=== PATIENT | male | born 1950 | race Caucasian/White ===

== ENCOUNTER → 2016-12-13 | Outpatient (CLI) | payer OTHER, BC | LOC: MMPC 09:00 | PROVIDERS: ATTEND Family Medicine | DX: I10 Essential (primary) hypertension (principal); M54.5 Low back pain; F17.210 Nicotine dependence, cigarettes, uncomplicated; R33.9 Retention of urine, unspecified; F41.9 Anxiety disorder, unspecified | CPT/HCPCS: 99204 ==

== ENCOUNTER → 2017-01-21 | Outpatient (CLI) | payer OTHER, BC | LOC: MMPC 09:00 | PROVIDERS: ATTEND Family Medicine | DX: N30.90 Cystitis, unspecified without hematuria (principal); R30.0 Dysuria; F41.9 Anxiety disorder, unspecified | CPT/HCPCS: 81002; 99213; G0463 ==

== ENCOUNTER → 2017-01-22 | Outpatient (CLI) | payer OTHER, BC ==
[2017-01-22 11:23] LABS: HEMATOCRIT 39.6 % (42.0-52.0); HEMOGLOBIN 13.9 g/dL (14.0-18.0); MEAN CORPUSCULAR HEMOGLOBIN 35.9 PG (27-31); MEAN CORPUSCULAR HGB CONC 35.1 g/dL (33-37); MEAN CORPUSCULAR VOLUME 102.3 FL (80-90); MEAN PLATELET VOLUME 9.1 FL (7.4-12.2); RED BLOOD COUNT 3.87 10^6/uL (4.70-6.10)
[2017-01-22 11:37] LABS: BLOOD UREA NITROGEN 15 mg/dL (7-22); BUN/CREATININE RATIO 21.42 (6-20); CALCIUM 8.9 mg/dL (8.7-10.7); EST GLOMERULAR FILTRATION > 60 (>60 ml/min/1.73m(2)); SERUM ALBUMIN 3.6 g/dL (3.5-4.8)
== END ==
LOC: MOB LAB 10:27
PROVIDERS: ATTEND Family Medicine
DX: N30.90 Cystitis, unspecified without hematuria (principal); N39.41 Urge incontinence; F41.9 Anxiety disorder, unspecified; F17.210 Nicotine dependence, cigarettes, uncomplicated
CPT/HCPCS: 36415; 80053; 84153; 85027

== ENCOUNTER → 2017-04-07 | Outpatient (CLI) | payer OTHER, BC | LOC: MMPC 09:00 | DX: J20.9 Acute bronchitis, unspecified (principal); J06.9 Acute upper respiratory infection, unspecified; F17.210 Nicotine dependence, cigarettes, uncomplicated | CPT/HCPCS: 94640; 99213; G0463 ==

== ENCOUNTER → 2017-04-11 | Outpatient (CLI) | payer OTHER, BC | LOC: MMPC 09:00 | PROVIDERS: ATTEND Family Medicine | DX: J20.9 Acute bronchitis, unspecified (principal); I10 Essential (primary) hypertension ==

== ENCOUNTER → 2017-04-23 | Outpatient (CLI) | payer OTHER, BC | LOC: MMPC 09:00 | PROVIDERS: ATTEND Family Medicine | DX: J20.9 Acute bronchitis, unspecified (principal); F41.1 Generalized anxiety disorder | CPT/HCPCS: 99212; G0463 ==

== ENCOUNTER → 2017-06-06 | Outpatient (CLI) | payer OTHER, BC | LOC: MMPC 09:00 | PROVIDERS: ATTEND Family Medicine | DX: I10 Essential (primary) hypertension (principal); F41.1 Generalized anxiety disorder; M40.04 Postural kyphosis, thoracic region; F17.210 Nicotine dependence, cigarettes, uncomplicated | CPT/HCPCS: 99214; G0463 ==

== ENCOUNTER → 2017-06-27 | Outpatient (CLI) | payer OTHER, BC ==
--- NOTE | 2017-06-29 13:47 | DI ---
MRI LUMBAR SPINE SCAN WITHOUT IV CONTRAST, 06/27/2017 10:27 AM: Clinical History: Postural kyphosis. Previous Exam: None. Technique: Sagittal and axial T2 weighted; sagittal T1 weighted and T2 STIR; and axial PD. Extensive scan artifacts are present secondary to placement of metallic struts transfixed with pedicl e screws between L1 and S1. The artifacts make assessment of the canal over this distance and possibl e. Anterior fusions have been performed between L1-2 through L5-S1. 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 Assessment o f the canal at this level shows that there is no canal stenosis but the integrity of the apophyseal j oints cannot be determined. The T11 vertebral body is of normal height. The T10-11 and T11-12 and S1- 2 disc spaces are of normal height but show desiccation change. The cord has a normal appearance at T 11 and T12 and the conus medullaris is normal. There is spinal canal stenosis suspected at T12-L1 at the gibbus deformity. Readin. 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 2. There has been anterior and posterior fusions performed between L1-2 and L5-S1. The metallic hard arriaga posteriorly is causing extensive artifacts such that the canal cannot be assessed over these lev els. 3. Further evaluation with a CT scan of the lumbar spine with metal artifact reduction would be the best procedure to assess this area better. Also, if evaluation of the canal is required, then a CT my elogram of the lumbar spine would be recommended.
== END ==
LOC: MRI 10:22
PROVIDERS: ATTEND Family Medicine
DX: M40.04 Postural kyphosis, thoracic region (principal); M48.55XA Collapsed vertebra, not elsewhere classified, thoracolumbar region, initial encounter for fracture
CPT/HCPCS: 72148

== ENCOUNTER 2018-04-18 10:40 | Inpatient (IN) ==
[2018-04-18] MEDS ORDERED: Sodium Chloride 0.9% 1,000 ML PRIMARY IV ONE ×2 (10:52→15:27)
--- NOTE | 2018-04-18 10:56 | EKG ---
[address] [place] [address] Measurements Intervals [place] Rate: 53 P: 46 SD: 143 QRS: 85 QRSD: 106 T: 36 QT: 513 QTc: 496 Interpretive Statements SINUS BRADYCARDIA LOW QRS VOLTAGE IN EXTREMITY LEADS [QRS DEFLECTION < 0.5 mV IN LIMB LEADS] PROLONGED QT INTERVAL Compared to ECG 11/25/2017 10:28:24 Low QRS voltage now present Electronically Signed On 04-20-18 09:52:05 MDT by Magdy Rios MD [email or web address]
[2018-04-18] MEDS ORDERED: HEPARIN 500 UNIT/5 ML SYRINGE FOR CENTRAL LINE IVP ONE (10:58)
--- NOTE | 2018-04-18 11:26 | PDOC ---
General Adult HPI - General Chief Complaint: General Medical Stated Complaint: CONFUSION/LEG SWELLING SINCE YESTERDAY Date Seen by Provider: 04/18/18 Time Seen by Provider: 10:50 Source: POSITIVE: Patient, Other (family) Nurse's Notes Reviewed & Considered: Yes - History of Present Illness Initial Comment: The patient is a 68-year-old male who is brought to the emergency department by family members with concern regarding increased confusion and swelling in his legs. He fractured his left elbow in February of this year and subsequently underwent surgery in [place]. The surgery was complicated by infection and the patient has been receiving IV antibiotics for over a month for this. The family member here with the patient states that when she spoke with him yesterday he seemed out of it. Today he is more confused and was subsequently brought here to the emergency department. On arrival the patient is very lethargic however he does awaken and answer questions briefly. He is unsure of the medications that he is taking And specifically is unsure about taking any recent pain medication. He does report a mild headache. The family member reports that he is supposed to be wearing oxygen at home at least at night however he does not wear any oxygen at home. On arrival to the emergency department here his oxygen saturations were in the 70s and he was placed on O2 per nonrebreather mask. The patient denies any current chest pain. Further history is difficult to obtain from the patient. Have you received a tetanus shot in the past 10 years?: Yes - Patient Home Medications Home Medications: Home Medications Aspirin 81 mg PO DAILY tab 12/13/16 multivitamin with minerals tablet 1 tab PO QDAY tab 10/14/17 naproxen sodium 220 mg tablet 220 mg PO Q12H 10/14/17 oxybutynin chloride 5 mg tablet 15 mg PO QD tab 10/14/17 tizanidine 4 mg tablet 4 mg PO BID PRN #60 tab 12/10/17 meloxicam 7.5 mg tablet 7.5 mg PO BID #60 tab 01/12/18 tamsulosin 0.4 mg capsule 0.4 mg PO QHS #30 cap 01/13/18 clonidine HCl 0.1 mg tablet 0.1 mg PO BID #60 tab 01/20/18 metoprolol tartrate 100 mg tablet 100 mg PO BID #60 tab 01/20/18 losartan 100 mg-hydrochlorothiazide 25 mg tablet 1 tab PO QDAY #90 tab 04/06/18 gabapentin 600 mg tablet 600 mg PO TID #90 tab 02/17/18 lorazepam 1 mg tablet 1 mg PO BID #90 tab MDD 3 03/16/18 omeprazole 40 mg capsule,delayed release 40 mg PO DAILY #30 cap 03/16/18 furosemide 40 mg tablet 40 mg PO BID #4 tab 03/18/18 amlodipine 5 mg tablet 5 mg PO DAILY #30 tab 03/26/18 fluoxetine 40 mg capsule 80 mg PO QDAY #60 cap 03/31/18 trazodone 100 mg tablet 100 mg PO QHS #30 tab 03/31/18 olanzapine 10 mg tablet 10 mg PO QDAY #30 tab 04/08/18 - Patient Allergies Allergies/Adverse Reactions: Allergies 3 Allergy/AdvReac Type Severity Reaction Status Date / Time penicillin V Allergy Unknown NOT Verified 04/18/18 10:50 APPLICABLE Sulfa (Sulfonamide Allergy NOT Verified 04/18/18 10:50 Antibiotics) APPLICABLE Past Medical History - heen HEENT History: Denies History Cardiovascular History: Hypertension Respiratory History: Denies History Gastrointestinal History: Denies History Genitourinary History: Denies History Endocrine History: Denies History Musculoskeletal History: Arthritis Prosthesis or Implant: No Neurological History: Denies History Blood Disorders: Denies History Psychiatric History: Denies History History of Sexually Transmitted Diseases: No Cancer History: Denies History History of MDRO: No History of Other Communicable Diseases: No In the Past 12 Months, Have Used or Abuse Any Substance: None Previous Surgical History: Yes Type / Date of Surgery: TONSILS Anesthesia Reactions: No Malignant Hyperthermia: No Significant Family History: No pertinent family hx Past Medical History Reviewed: Reviewed - No Changes ROS - Limitations ROS Limitations: Clinical Condition Constitution: DENIES: Fever Cardiovascular: DENIES: Chest Pain Respiratory: REPORTS: Other (Patient has no complaints of shortness of breath however his oxygen saturations were in the 70s on room air) Neurological: REPORTS: Confusion, Headache Gastrointestinal: DENIES: Abdominal Pain Musculoskeletal: REPORTS: Lower Extremity Swelling Skin: DENIES: Rash General Adult Exam - General Appearance General Appearance: POSITIVE: Other (The patient is very sleepy and drifts off to sleep when he is not being directly question, he does awaken briefly and answer pointed questions) - HEENT HEENT: POSITIVE: Head Inspection Nml, Eyes Inspection Nml, Ears Inspection Nml, PERRL, EOMI, Dry Mucous Membranes - Neck Neck: POSITIVE: Normal Inspection. NEGATIVE: Lymphadenopathy - Respiratory Respiratory: POSITIVE: No Respiratory Distress, Breath Sounds Normal, Other ( Oxygen saturations were initially in the 70s and he was initially placed on nasal cannula however his oxygen saturations remained in the upper 80s and he was subsequently placed on O2 per nonrebreather which brought his oxygen saturations in the high 90s to 100%. End-tidal CO2 monitor revealed a value of 25) - Cardiovascular Cardiovascular: POSITIVE: Regular Rate & Rhythm (Heart rate is in the 50s which is apparently normal for him), No Murmur - Abdomen Abdomen: Soft: (All Quadrants), Denies Tenderness: (All Quadrants), No Distention: (All Quadrants) - Skin Skin: POSITIVE: Normal Color, No Rash - Extremities Additional Extremities Details: He does have significant swelling in the lower extremities bilaterally, he does have a PICC line in the right arm, dressing over the left elbow General Adult Progress - Results Reviewed by me Xrays/CTs/US Reviewed by me: Yes Discussed with Radiologist: Yes Radiology Findings: Chest x-ray shows new diffuse patchy infiltrates in the lower lobes, PICC line in good position per radiologist. CT scan of the head shows no acute intracranial findings per radiologist. CT of the chest is negative for PE, he does have some perihilar lymphadenopathy and bilateral patchy infiltrates Lab Results Reviewed by Me: Yes CBC and BMP: 04/18/18 11:20 04/18/18 11:20 EKG Interpreted/Reviewed By Me:: Yes EKG Interpretation:: POSITIVE: Other (Initial EKG shows sinus bradycardia, prolonged QT interval with no acute ST segment or T-wave changes) - Patient's Progress MDM / ED Course: The patient already has a PICC line in place in the right arm. Blood cultures were drawn 1 through the PICC line and one percutaneously. Arterial blood gas reveals a pH of 7.43 with PCO2 of 42. His blood sugar was 119 on arrival. He was quite hypoxic initially with oxygen saturations in the 70s on room air. With a nasal cannula he came up only into the high 80s and he was subsequently placed on a nonrebreather with improvement in his oxygen saturations to the high 90s to 100%. The patient remains somnolent and slept for the most part unless he was specifically being questioned. Blood work showed a normal white count. His CRP was 7.6 which is where it has been for the past several weeks. Lactate was normal. Electrolytes are essentially unremarkable except for slightly low potassium at 132. His troponin is negative. BNP was elevated at 1500 however this was 2300 in November last time it was checked here. The patient apparently normally self catheters at home and a Vu catheter was placed. Urinalysis is negative for infection. Chest x-ray showed patchy infiltrates in the bases bilaterally. Head CT shows no acute intracranial findings. His d-dimer was elevated and subsequent CTA of the chest was negative for PE however did show bilateral patchy infiltrates and some mediastinal lymphadenopathy. His tox screen was positive only for benzodiazepines. At this point it appears that the likely cause of his increased confusion is medication related as he is on several medications which could cause confusion. The patient was also significantly hypoxic on arrival. These findings are discussed with his ex- and the patient however he remains quite confused. The patient is also discussed with Dr. Aguilera and he has agreed to admit the patient. Patient Care Time - Estimated PCT Patient Care Time (In Minutes): 55 Vital Signs - Recent Vital Signs Vital Signs: Vital Signs (Last 8 hours) Temp Pulse Pulse Resp BP BP BP 04/18/18 14:34 47 L 14 04/18/18 14:32 47 L 15 86/44 04/18/18 14:30 48 L 15 04/18/18 14:28 48 L 13 04/18/18 14:26 49 L 14 04/18/18 14:24 49 L 17 04/18/18 14:22 54 L 7 L 04/18/18 14:20 53 L 16 107/54 04/18/18 14:18 51 L 9 L 04/18/18 14:16 52 L 14 04/18/18 14:14 50 L 14 04/18/18 14:12 53 L 10 L 04/18/18 14:10 55 L 28 H 04/18/18 14:08 54 L 14 04/18/18 14:06 57 L 13 04/18/18 14:04 53 L 12 04/18/18 14:02 53 L 17 86/49 04/18/18 14:00 55 L 17 04/18/18 13:58 51 L 13 04/18/18 13:56 57 L 12 04/18/18 13:54 54 L 8 L 04/18/18 13:52 55 L 11 L 04/18/18 13:50 60 15 04/18/18 13:48 56 L 17 110/85 04/18/18 13:46 55 L 13 04/18/18 13:44 55 L 13 04/18/18 13:42 55 L 4 L 04/18/18 13:40 55 L 17 04/18/18 13:38 55 L 8 L 04/18/18 13:36 56 L 11 L 04/18/18 13:30 53 L 14 113/63 04/18/18 13:15 54 L 17 96/66 04/18/18 13:00 51 L 21 04/18/18 12:30 51 L 18 04/18/18 12:00 55 L 30 H 04/18/18 11:45 97.4 F 54 L 16 104/80 04/18/18 11:30 54 L 21 04/18/18 11:15 56 L 27 H 04/18/18 11:00 53 L 17 04/18/18 10:55 53 L 04/18/18 10:45 58 L 04/18/18 10:40 98.7 F 57 L 57 L 24 95/58 Pulse Ox 04/18/18 14:34 95 04/18/18 14:32 95 04/18/18 14:30 96 04/18/18 14:28 96 04/18/18 14:26 97 04/18/18 14:24 97 04/18/18 14:22 98 04/18/18 14:20 97 04/18/18 14:18 96 04/18/18 14:16 96 04/18/18 14:14 96 04/18/18 14:12 98 04/18/18 14:10 99 04/18/18 14:08 95 04/18/18 14:06 98 04/18/18 14:04 94 04/18/18 14:02 95 04/18/18 14:00 88 04/18/18 13:58 93 04/18/18 13:56 94 04/18/18 13:54 97 04/18/18 13:52 91 04/18/18 13:50 100 04/18/18 13:48 98 04/18/18 13:46 97 04/18/18 13:44 100 04/18/18 13:42 100 04/18/18 13:40 99 04/18/18 13:38 99 04/18/18 13:36 81 04/18/18 13:30 100 04/18/18 13:15 100 04/18/18 13:00 98 04/18/18 12:30 99 04/18/18 12:00 100 04/18/18 11:45 100 04/18/18 11:30 100 04/18/18 11:15 100 04/18/18 11:00 100 04/18/18 10:55 04/18/18 10:45 89 04/18/18 10:40 77 - VS Reviewed Vital Signs Reviewed: Yes Discharge Clinical Impression: Altered mental status, Hypoxia Discharge Disposition: Admit to Inpatient Condition: Serious Follow Up With: OTIS SIMS [Primary Care Provider] - Date Decision to Admit to Inpatient: 04/18/18 Time Decision to Admit to Inpatient: 14:30
[2018-04-18 11:41] LABS: ABG BASE EXCESS 4 MMOL/L (-2-2); ABG OXYGEN SATURATION 96 % (90-100); ABG PCO2 42 MMHG (34-38); ABG PH 7.43 (7.35-7.45); ABG PO2 81 MMHG (65-75); ALLEN TEST Y; COLLECTION SITE R RADIAL
[2018-04-18 11:49] LABS: BASOPHILS # (AUTO) 0.05 10*3/UL; BASOPHILS % (AUTO) 0.7 % (0-1); EOSINOPHILS % (AUTO) 5.5 % (0-8); Hematocrit [HCT] 30.5 % (42.0-52.0); Hemoglobin [HGB] 10.3 g/dL (14.0-18.0); LYMPHOCYTES # (AUTO) 0.78 10*3/uL; MEAN CORPUSCULAR HEMOGLOBIN 35.5 PG (27-31); MEAN CORPUSCULAR HGB CONC 33.8 g/dL (33-37); MEAN CORPUSCULAR VOLUME 105.2 FL (80-90); MEAN PLATELET VOLUME 8.7 FL (7.4-12.2); MONOCYTES # (AUTO) 0.41 10*3/UL (0.3-0.8); MONOCYTES % (AUTO) 5.6 % (5-15); NEUTROPHILS # (AUTO) 5.68 10*3/UL; NEUTROPHILS % (AUTO) 77.5 % (50-80)
[2018-04-18 11:50] LABS: PLATELET MORPHOLOGY COMMENT NORMAL MORPHOLOGY (NORM); RBC MORPHOLOGY COMMENT NORMAL MORPHOLOGY (NORM); WBC MORPHOLOGY COMMENT NORMAL MORPHOLOGY (NORM)
[2018-04-18 12:02] LABS: BLOOD UREA NITROGEN 18 mg/dL (7-22); SERUM ALBUMIN 3.2 g/dL (3.5-4.8)
[2018-04-18 12:03] LABS: SALICYLATE < 1.0 mg/dl (0-20)
[2018-04-18 12:03] LABS: BILIRUBIN,URINE SMALL (NEG); CLARITY,URINE CLEAR (CLEAR); COLOR,URINE YELLOW (Y); GLUCOSE, URINE (UA) NEGATIVE (NEG); OCCULT BLOOD,URINE NEGATIVE (NEG); PH,URINE 8.5 (5.0-8.5); PROTEIN,URINE NEGATIVE (NEG); UROBILINOGEN,URINE >8.0 EU/dL (0.2)
[2018-04-18 12:04] LABS: URINE SAMPLE TYPE CLEAN CATCH URINE; URINE SPECIFIC GRAVITY - MAN 1.015
[2018-04-18 12:11] LABS: AMPHETAMINE SCREEN NEGATIVE (NEG); CANNABINOID SCREEN,URINE NEGATIVE (NEG); COCAINE SCREEN NEGATIVE (NEG); METHADONE URINE SCREEN NEGATIVE (NEG); METHAMPHETAMINES SCREEN,URINE NEGATIVE (NEG); OPIATE SCREEN,URINE NEGATIVE (NEG)
--- NOTE | 2018-04-18 12:41 | DI ---
Exam: FILM CXR Single frontal view chest INDICATION: Hypoxia COMPARISON: Chest x-ray 04/06/18 FINDINGS: Patient is rotated to the left. Right PICC line tip in the superior vena cava in satisfactory position. Patchy airspace infiltrate in the lung bases bilaterally more evident near the right costophrenic angle. There is also patchy alveolar opacity in the right lateral midlung field. No effusion or pneumothorax. Low lung volumes are noted. Heart size within normal limits. Accounting for rotation mediastinal contours remain stable within normal limits. No venous congestion accounting for low lung volume status. The cardiomediastinal silhouette is within normal limits. Lungs are clear. Bony elements are within normal limits for age. No acute osseous abnormality. IMPRESSION: 1. Right PICC line tip in the superior vena cava satisfactory in position. 2. Interval development of patchy airspace opacity in the bilateral lung bases and right lateral midlung field. These cannot present regions of subsegmental atelectasis however pneumonia is also in the consideration. 3. No effusion or pneumothorax.
--- NOTE | 2018-04-18 13:54 | DI ---
Exam: CT HEAD Without Contrast INDICATION: Confusion TECHNIQUE: Multiple, contiguous 5 mm axial cuts of the brain are obtained from the posterior fossa to the cranial vault. . No IV contrast is administered. COMPARISON: No prior CT head available FINDINGS: No acute intracranial hemorrhage or midline shift or mass effect. No acute cortical infarct by CT exam. Caliber of the ventricles, cisterns and sulci are within normal limits for age. Vanegas-white differentiation is maintained. No skull fractures. Previous bilateral maxillary sinus antrectomy surgical changes with partial ethmoidectomy and turbinectomy. Moderate mucosal thickening bilateral maxillary sinus and mild degree of few of the ethmoid air cells. Remaining paranasal sinuses are clear. Visualized mastoid air cells are clear. IMPRESSION: 1. No acute intracranial hemorrhage or acute intracranial process. No acute cortical infarct identified by CT. 2. Previous paranasal sinus surgical changes. There is moderate chronic sinus mucosal thickening of the bilateral maxillary sinus and mild degree of diffuse ethmoid air cells.
--- NOTE | 2018-04-18 14:25 | DI ---
Exam: CTA CHEST With Contrast INDICATION: Elevated d-dimer, hypoxia TECHNIQUE: Multiple, contiguous 3 mm axial cuts of the chest are obtained following the administration of IV contrast. High resolution axial images as well as sagittal and coronal reformatted images are available. COMPARISON: Chest radiograph exam 04/18/18, 04/06/18 FINDINGS: No filling defects within the pulmonary arteries identified to indicate a pulmonary embolism. There is extensive emphysematous changes of the lungs. Airspace consolidation in the bilateral lower lobes and periphery of the right middle lobe are noted and also at the periphery of the posterior segment of the right upper lobe. There is also patchy small regions of airspace consolidation in the left upper lobe. There is a component of bilateral basilar atelectasis. There is trace bilateral pleural effusions. No pneumothorax. There is bilateral hilar enlarged nodes largest on the right measuring 2. 2 cm, largest on the left measuring 2.8 cm. There are enlarged mediastinal lymph nodes largest a subcarinal 3.2 cm lymph node. No enlarged axillary lymph nodes. There are a few fatty hilum lateral lymph nodes noted short axis diameter within normal limits. Thoracic aorta normal caliber without dissection. Minimal vascular calcification. Heart size upper normal. There is coronary artery calcification. No pericardial effusion. Posterior pedicle screw and yosi fusion at L1 and L2 level. Portion of the inferior aspect of T12 vertebral body is absent in addition to portion of L1 vertebral body. Unclear if these are chronic surgical changes are related to old trauma and chronic changes. Kyphotic angulation at T12/L1. Osteoarthritic changes left glenohumeral joint with some calcific densities in the left glenohumeral joint likely loose bodies. There is also osteoarthritic changes of the acromioclavicular joints. Partially imaged approximate 3 cm exophytic lesion of the left kidney upper pole density not definitive for simple cyst. IMPRESSION: 1. No filling defects within the pulmonary arteries to indicate a pulmonary embolism. 2. Patchy airspace consolidation changes in the right lower lobe and periphery of the right middle lobe and right upper lobe. Small region of patchy airspace consolidation in the left upper lobe. These could represent regions of pneumonia. There is a component of bilateral basilar atelectatic change. Correlate with clinical findings. 3. Trace bilateral pleural effusions. No pneumothorax. 4. Emphysematous changes of the lungs. 5. Mediastinal and hilar adenopathy. 6. Posterior pedicle screw and yosi fusion at L1 and L2 level. Portion of the inferior aspect of T12 vertebral body is absent in addition to portion of L1 vertebral body. Unclear if these are chronic surgical changes are related to old trauma and chronic changes. Kyphotic angulation at T12/L1. Osteoarthritic changes left glenohumeral joint with some calcific densities in the left glenohumeral joint likely loose bodies. Comparison to prior exams would be helpful along with clinical correlation with patient's prior history. 7. 3 cm exophytic lesion of the left kidney upper pole density not definitive for simple cyst. This can be evaluated by nonemergent follow- up ultrasound.
[2018-04-18] MEDS ORDERED: Magnesium Sulfate 2gm (Premix) 2 GM/50 ML BAG IV ONE (15:23)
[2018-04-18] MEDS ORDERED: ONDANSETRON 4 MG/2 ML VIAL IVP PRN (15:23)
[2018-04-18] MEDS ORDERED: LIDOCAINE W/ SODIUM BICARB 0.5 ML SYR SUBD PRN (15:23)
[2018-04-18] MEDS ORDERED: DAPTOMYCIN IV ONE (15:23)
[2018-04-18] MEDS ORDERED: DOCUSATE 100 MG CAPSULE PO PRN (15:23)
[2018-04-18] MEDS ORDERED: SODIUM CHLORIDE 0.9% IV ONE (15:23)
[2018-04-18] MEDS ORDERED: Sodium Chloride 0.9% 1,000 ML PRIMARY IV SCH (15:23)
[2018-04-18] MEDS ORDERED: CALCIUM CARBONATE 500 MG (TUMS) CHEWABLE TABLET PO PRN (15:23)
[2018-04-18] MEDS ORDERED: ACETAMINOPHEN 325 MG TABLET PO PRN (15:23)
[2018-04-18] MEDS ORDERED: NICOTINE 21 MG /DAY PATCH TRANSDERM ONE (15:28)
[2018-04-18] MEDS ORDERED: LORazepam Inj(ETOH withdrawal) 2 MG/ML VIAL IVP PRN (15:28)
--- NOTE | 2018-04-18 15:43 | PDOC ---
HPI - History of Present Illness Date of Service: 04/18/18 Time of Service: 15:37 Chief Complaint: Altered mental status History of Present Illness: This is a 68-year-old male with history of tobacco abuse, alcohol abuse, and recent elbow fracture with subsequent postoperative infection earlier this year who is still on IV antibiotics with a PICC line in place who presents with altered mental status. His ex- apparently has been assisting him to some degree with his care. The patient was noted to be "out of it" yesterday and he was brought in for evaluation today. He became quite hypoxic and workup was done to look for possible pulmonary emboli. That study was negative. EKG showed a prolonged QT time. The patient's ex- reported to the nurses that she felt the patient was likely drinking, although the patient cannot really provide those details. He is somewhat lethargic, sluggish, and slow to answer questions. He does not always answer them appropriately. He seems confused. He is bradycardic and his blood pressure is been slowly dropping as well. His history is completely unreliable and unobtainable due to the above issues. His medication list shows several medications that can act centrally and can also prolong the QT time. He appears to have hypertension looking at his list as well. History of screen was positive for benzodiazepines which he is on chronically. Past Medical History Medical History: 1. Hypertension. 2. Anxiety disorder. 3. Alcohol abuse. 4. Tobacco abuse. 5. Obstructive sleep apnea. 6. Elbow infection, postoperative. 7. Depression. 8. GERD Surgical History: 1. Recent elbow surgery on left elbow. 2. Sinus surgery. 3. Back surgery. 4. Squamous carcinoma the skin removal. 5. Total knee replacement. 6. PICC line right upper extremity Pertinent Family History: I cannot obtain this information is the patient is altered Past Social History: Smokes daily, pack and a half. He states that he is not on alcohol but his ex- doubts that this is true. His alcohol and his testing in the emergency room was negative. Tobacco Use: Current Every Day Smoker In the Past 12 Months, Have Used or Abuse Any of the Following Substance: None Alcohol Use: Heavy (Reportedly drinks heavily) Medication / Allergies Home Medications: Home Medications 3 Medication Instructions Recorded Confirmed Type Aspirin 81 mg PO DAILY tab 12/13/16 04/18/18 History multivitamin with minerals tablet 1 tab PO QDAY tab 10/14/17 04/18/18 History naproxen sodium 220 mg tablet 220 mg PO Q12H 10/14/17 04/18/18 History oxybutynin chloride 5 mg tablet 15 mg PO QD tab 10/14/17 04/18/18 History tizanidine 4 mg tablet 4 mg PO BID PRN #60 tab 12/10/17 04/18/18 Rx meloxicam 7.5 mg tablet 7.5 mg PO BID #60 tab 01/12/18 04/18/18 Rx tamsulosin 0.4 mg capsule 0.4 mg PO QHS #30 cap 01/13/18 04/18/18 Rx clonidine HCl 0.1 mg tablet 0.1 mg PO BID #60 tab 01/20/18 04/18/18 Rx metoprolol tartrate 100 mg tablet 100 mg PO BID #60 tab 01/20/18 04/18/18 Rx losartan 100 1 tab PO QDAY #90 tab 02/06/18 04/18/18 Rx mg-hydrochlorothiazide 25 mg tablet gabapentin 600 mg tablet 600 mg PO TID #90 tab 02/17/18 04/18/18 Rx lorazepam 1 mg tablet 1 mg PO BID #90 tab MDD 3 03/16/18 04/18/18 Rx omeprazole 40 mg capsule,delayed 40 mg PO DAILY #30 cap 03/16/18 04/18/18 Rx release furosemide 40 mg tablet 40 mg PO BID #4 tab 03/18/18 04/18/18 Rx amlodipine 5 mg tablet 5 mg PO DAILY #30 tab 03/26/18 04/18/18 Rx fluoxetine 40 mg capsule 80 mg PO QDAY #60 cap 03/31/18 04/18/18 Rx trazodone 100 mg tablet 100 mg PO QHS #30 tab 03/31/18 04/18/18 Rx olanzapine 10 mg tablet 10 mg PO QDAY #30 tab 04/08/18 04/18/18 Rx Allergies/Adverse Reactions: Allergies 3 Allergy/AdvReac Type Severity Reaction Status Date / Time penicillin V Allergy Unknown NOT Verified 04/18/18 15:35 APPLICABLE Sulfa (Sulfonamide Allergy NOT Verified 04/18/18 15:35 Antibiotics) APPLICABLE Review of Systems - Review of Systems ROS Unobtainable: Due to Mental Status (I cannot obtain a review systems due to the patient's altered mental status.) Exam - Vitals Vital Signs: Vital Signs Temperature 98.5 F Temperature Source Temporal Artery Scan Pulse Rate [Telemetry] 53 Pulse Rate 55 Respiratory Rate 16 Blood Pressure [Left Radial 113/63 Artery] Blood Pressure [Right Radial 95/58 Artery] Blood Pressure 117/66 Pulse Ox 97 Oxygen Delivery Method Non-Rebreather Mask Height 5 ft 6 in Weight 167 lb 11.2 oz - General General Appearance: No Acute Distress, Disheveled, Thin - Head Head Exam: Normal Inspection, Normocephalic, Atraumatic - Eye Eye Exam: POSITIVE: No Scleral Icterus Eye: Abnormal Pupil: Bilateral Eye (mydriasis, sluggish pupils) - ENT ENT Exam: POSITIVE: Mucous Membranes Dry - Neck Neck Exam: No Tenderness, No Lymphadenopathy, No Thyromegaly, JVP is not Raised - Respiratory Respiratory Exam: POSITIVE: Clear to Auscultation - Bilaterally, Breathing Non Labored, Normal to Percussion and Palpation - Cardiovascular Cardiovascular Exam: POSITIVE: No Murmur, No Clicks, No Gallops, No Rubs, Bradycardia, No JVD - GI/Abdominal GI/Abdominal Exam: POSITIVE: Normal Bowel Sounds, Non Tender, Non Distended, Soft - Rectal Rectal Exam: POSITIVE: Deferred - External Exam: POSITIVE: Deferred Exam: POSITIVE: Deferred - Extremities Extremities Exam: POSITIVE: Normal Capillary Refill, Pedal Edema, +2 Edema - Back Back Exam: POSITIVE: No CVA Tenderness Additional Back Exam Details: Has noted kyphotic deformity at and a thoracic spine and lumbar spine, beginning of lumbar spine. - Neurological Neurological Exam: POSITIVE: Alert, No Facial Droop, Speech Intact / Clear ( Speech is somewhat sluggish, but is not slurred.), Moves All Extremities Equally , Altered (Oriented to person, but not to time or situation) - Integumentary Integumentary Exam: POSITIVE: Normal Color, Warm, Dry, Intact - Central Line Examination Central Line Present on Admission: Yes Central Line Type: PICC Line (PICC line and right upper extremity is present on exam, PICC line is clean, dry, intact with no erythema) Results - Labs CBC and BMP: 04/18/18 11:20 04/18/18 11:20 Additional Lab Results: Laboratory Results 06/16/18 06/16/18 06/16/18 Range/Units 10:52 11:16 11:20 WBC 7.33 (4.8-10.8) 10^3/uL RBC 2.90 L (4.70-6.10) 10^6/uL Hgb 10.3 L (14.0-18.0) g/dL Hct 30.5 L (42.0-52.0) % MCV 105.2 H (80-90) FL MCH 35.5 H (27-31) PG MCHC 33.8 (33-37) g/dL RDW Std Deviation 60.7 H (39-50) fL RDW Coeff of [place] 16.7 H (11.5-14.5) % Plt Count 260 (140-350) 10*3/uL MPV 8.7 (7.4-12.2) FL Immature Gran % (Auto) 0.1 (0-5) % Neut % (Auto) 77.5 (50-80) % Lymph % (Auto) 10.6 (10-50) % [place] % (Auto) 5.6 (5-15) % Eos % (Auto) 5.5 (0-8) % Baso % (Auto) 0.7 (0-1) % Immature Gran # (Auto) 0.01 10*3/UL Neut # (Auto) 5.68 10*3/UL Lymph # (Auto) 0.78 10*3/uL [place] # (Auto) 0.41 (0.3-0.8) 10*3/UL Eos # (Auto) 0.40 10*3/UL Baso # (Auto) 0.05 10*3/UL WBC Morphology Comment Normal morphology (NORM) Plt Morphology Comment Normal morphology (NORM) RBC Morph Comment Normal morphology (NORM) PT (9.7-11.4) secs INR (0.00-5.90) N/A D-Dimer (0.00-0.59) mg/L ABG pH 7.43 (7.35-7.45) ABG pCO2 42 H (34-38) MMHG ABG pO2 81 H (65-75) MMHG ABG HCO3 28 H (22-26) ABG Total CO2 29 H (23-27) MMOL/L ABG O2 Saturation 96 (90-100) % ABG Base Excess 4 H (-2-2) MMOL/L Rafal Test Y FiO2 10lpm pnrb Sodium (135-145) meq/L Potassium (3.8-5.2) meq/L Chloride (98-112) meq/L Carbon Dioxide (23-33) meq/L Anion Gap (5-20) BUN (7-22) mg/dL Creatinine (0.70-1.50) mg/dL Estimated GFR (>60 ml/min/1.73m(2)) BUN/Creatinine Ratio (6-20) Glucose (78-110) mg/dL Calculated Osmolality (267-292) mOsm/kg Lactic Acid (0.70-2.10) MMOL/L Calcium (8.7-10.7) mg/dL Magnesium (1.6-2.4) mg/dL Total Bilirubin (0.3-1.2) mg/dL AST (21-57) IU/L ALT (21-72) IU/L Alkaline Phosphatase (38-126) IU/L C-Reactive Protein (0.0-0.9) mg/dL NT-Pro-B Natriuret Pep (0-125) PG/ML Total Protein (6.1-8.0) g/dL Albumin (3.5-4.8) g/dL Globulin (2.50-4.10) g/dL Albumin/Globulin Ratio (1.3-2.0) mg/g Ur Collection Type Clean catch urine Urine Color Yellow (Y) Urine Clarity Clear (CLEAR) Urine pH 8.5 (5.0-8.5) Ur Specific [place] 1.015 (1.005-1.030) U Specif Grav (Refrac) 1.015 Urine Protein Negative (NEG) mg/dl Urine Glucose (UA) Negative (NEG) mg/dL Urine Ketones Negative (NEG) Urine Occult Blood Negative (NEG) Urine Nitrate Negative (NEG) Urine Bilirubin Small (NEG) Urine Urobilinogen >8.0 (0.2) EU/dL Ur Leukocyte Esterase Negative (NEG) Ur Culture Indicated? Culture not set Salicylates (0-20) mg/dl Urine Opiates Screen Negative (NEG) Ur Buprenorphine Negative (NEG) Ur Oxycodone Screen Negative (NEG) Urine Methadone Screen Negative (NEG) Ur Propoxyphene Screen Negative (NEG) Acetaminophen (0-30) ug/mL Barbiturate Screen Negative (NEG) U Tricyclic Antidepress Negative (NEG) Phencyclidine Screen Negative (NEG) Amphetamines Screen Negative (NEG) U Methamphetamines Scrn Negative (NEG) Benzodiazepines Screen Positive H (NEG) Cocaine Screen Negative (NEG) U Marijuana (THC) Screen Negative (NEG) Serum Alcohol (0-10) mg/dL 04/18/18 04/18/18 04/18/18 Range/Units 11:20 11:20 11:20 WBC (4.8-10.8) 10^3/uL RBC (4.70-6.10) 10^6/uL Hgb (14.0-18.0) g/dL Hct (42.0-52.0) % MCV (80-90) FL MCH (27-31) PG MCHC (33-37) g/dL RDW Std Deviation (39-50) fL RDW Coeff of [place] (11.5-14.5) % Plt Count (140-350) 10*3/uL MPV (7.4-12.2) FL Immature Gran % (Auto) (0-5) % Neut % (Auto) (50-80) % Lymph % (Auto) (10-50) % [place] % (Auto) (5-15) % Eos % (Auto) (0-8) % Baso % (Auto) (0-1) % Immature Gran # (Auto) 10*3/UL Neut # (Auto) 10*3/UL Lymph # (Auto) 10*3/uL [place] # (Auto) (0.3-0.8) 10*3/UL Eos # (Auto) 10*3/UL Baso # (Auto) 10*3/UL WBC Morphology Comment (NORM) Plt Morphology Comment (NORM) RBC Morph Comment (NORM) PT 11.3 (9.7-11.4) secs INR 1.07 (0.00-5.90) N/A D-Dimer 1.22 H (0.00-0.59) mg/L ABG pH (7.35-7.45) ABG pCO2 (34-38) MMHG ABG pO2 (65-75) MMHG ABG HCO3 (22-26) ABG Total CO2 (23-27) MMOL/L ABG O2 Saturation (90-100) % ABG Base Excess (-2-2) MMOL/L Rafal Test FiO2 Sodium 133 L (135-145) meq/L Potassium 3.8 (3.8-5.2) meq/L Chloride 95 L (98-112) meq/L Carbon Dioxide 30 (23-33) meq/L Anion Gap 8 (5-20) BUN 18 (7-22) mg/dL Creatinine 0.9 (0.70-1.50) mg/dL Estimated GFR > 60 (>60 ml/min/1.73m(2)) BUN/Creatinine Ratio 20.00 (6-20) Glucose 101 (78-110) mg/dL Calculated Osmolality 277.0 (267-292) mOsm/kg Lactic Acid 2.0 (0.70-2.10) MMOL/L Calcium 8.2 L (8.7-10.7) mg/dL Magnesium 1.7 (1.6-2.4) mg/dL Total Bilirubin 2.3 H (0.3-1.2) mg/dL AST 16 L (21-57) IU/L ALT 32 (21-72) IU/L Alkaline Phosphatase 55 (38-126) IU/L C-Reactive Protein 7.7 H (0.0-0.9) mg/dL NT-Pro-B Natriuret Pep 1550 H (0-125) PG/ML Total Protein 6.2 (6.1-8.0) g/dL Albumin 3.2 L (3.5-4.8) g/dL Globulin 3.0 (2.50-4.10) g/dL Albumin/Globulin Ratio 1.00 L (1.3-2.0) mg/g Ur Collection Type Urine Color (Y) Urine Clarity (CLEAR) Urine pH (5.0-8.5) Ur Specific [place] (1.005-1.030) U Specif Grav (Refrac) Urine Protein (NEG) mg/dl Urine Glucose (UA) (NEG) mg/dL Urine Ketones (NEG) Urine Occult Blood (NEG) Urine Nitrate (NEG) Urine Bilirubin (NEG) Urine Urobilinogen (0.2) EU/dL Ur Leukocyte Esterase (NEG) Ur Culture Indicated? Salicylates < 1.0 (0-20) mg/dl Urine Opiates Screen (NEG) Ur Buprenorphine (NEG) Ur Oxycodone Screen (NEG) Urine Methadone Screen (NEG) Ur Propoxyphene Screen (NEG) Acetaminophen < 10.0 (0-30) ug/mL Barbiturate Screen (NEG) U Tricyclic Antidepress (NEG) Phencyclidine Screen (NEG) Amphetamines Screen (NEG) U Methamphetamines Scrn (NEG) Benzodiazepines Screen (NEG) Cocaine Screen (NEG) U Marijuana (THC) Screen (NEG) Serum Alcohol < 10 (0-10) mg/dL - EKG Data -: EKG Interpreted by Me Rate: Bradycardia EKG Shows Normal: Sinus Rhythm - EKG Data EKG Interpretation: Other (Prolonged QT interval) - Imaging Status: Image Reviewed by Me (Chest x-ray shows increased right lower lobe densities on exam that on CT scan read as possible atelectasis versus airspace disease. He has several nodules on CT scan as well, per the radiology report. Head CT scan looks negative on my view for acute bleeding. CT scan of chest negative for pulmonary emboli.) Assessment and Plan - Patient Problems (1) Altered mental status Current Visit: Yes Status: Acute Code(s): R41.82 - Altered mental status, unspecified Qualifiers: Altered mental status type: disorientation Qualified Code(s): R41.0 - Disorientation, unspecified (2) Prolonged Q-T interval on ECG Current Visit: Yes Status: Acute Code(s): R94.31 - Abnormal electrocardiogram [ECG] [EKG] (3) Hypertension Current Visit: Yes Status: Acute Code(s): I10 - Essential (primary) hypertension Qualifiers: Hypertension type: essential hypertension Qualified Code(s): I10 - Essential (primary) hypertension (4) Tobacco abuse Current Visit: Yes Status: Chronic Onset Date: 12/13/16 Code(s): Z72.0 - Tobacco use (5) Chronic bilateral low back pain without sciatica Current Visit: Yes Status: Chronic Onset Date: 12/13/16 Code(s): M54.5 - Low back pain; G89.29 - Other chronic pain (6) History of alcohol abuse Current Visit: Yes Status: Acute Code(s): Z87.898 - Personal history of other specified conditions (7) Postoperative wound infection Current Visit: Yes Status: Acute Code(s): T81.4XXA - Infection following a procedure, initial encounter Qualifiers: Encounter type: subsequent encounter Qualified Code(s): T81.4XXD - Infection following a procedure, subsequent encounter - Assessment / Plan Additional Assessment/Plan Details: Admit the patient. The patient appears to have both drug overdose on prescription medications as well as probable alcohol withdrawal with mydriasis, sluggishness, somnolence, hypotension, bradycardia. He has a prolonged QT and is on several medications that could cause a prolonged QT including several psychiatric medications. I tried to ask him if he had a history of bipolar disorder schizophrenia, but the history is so suspect at this point and I cannot really determine why he is on some of the medications he is. He is on several centrally acting agents including clonidine, Zyprexa, fluoxetine, trazodone, oxybutynin, fluoxetine, and I'm not sure if he is on any pain medications for his elbow as I can't see them on his reconciled medications at this point. He may be also drinking alcohol according to his ex- which is adding to the problems. We will run D5 normal saline with 3 A of bicarbonate and check EKGs through the hospital stay. Check labs in a.m. Telemetry monitoring. CIWA protocol and when necessary benzodiazepines based on this for withdrawal symptoms. Continue IV infusions for left elbow infection Given CT scan findings of nodules, think he'll need repeat CT scan findings. At this point and not sure what to make another airspace densities. The patient does not clinically have pneumonia. It's probably atelectasis. Given the findings on the kidneys, get a retroperitoneal ultrasound to look at the kidneys in more details to determine whether or not there is a mass there that we need to worry about. Complex, patient's prognosis is guarded given his presentation, full code.
[2018-04-18] MEDS ORDERED: LIDOCAINE HCL 2 % 10 ML JELLY URO-JECT TOPICAL PRN (16:00)
[2018-04-18] MEDS: DAPTOMYCIN IV SCH (16:11)
[2018-04-18] MEDS: SODIUM CHLORIDE 0.9% IV SCH (16:11)
[2018-04-18] MEDS: SODIUM BICARB IV SCH ×2 (17:16)
[2018-04-18] MEDS: D5 NS IV SCH ×2 (17:16)
--- NOTE | 2018-04-18 19:39 | DI ---
EXAM: US Retroperitoneal Complete, Renal CLINICAL HISTORY: Left kidney mass. TECHNIQUE: Real-time ultrasound of the kidneys and bladder with image documentation. COMPARISON: Correlation made with CT of the chest dated 04/18/2018. FINDINGS: Right kidney: Right kidney measures 10.7 x 6.1 x 6.6 cm. Right lower pole renal cyst is present measuring 2.3 x 2.2 x 2.6 cm. Trace pelviectasis is present without hydronephrosis. No calculi visualized. Left kidney: Left kidney measures 11.6 x 6.0 x 6.1 cm. No hydronephrosis. No mass identified. No calculi visualized. Bladder: Vu catheter is present in the bladder. Bladder measures 8. 2 x 5.7 x 7.9 cm with Vu clamped and 7.7 x 7.0 x 6.7 cm with Vu unclamped. Bladder wall is thickened measuring up to 9 mm anteriorly. Bilateral ureteral jets visualized in the bladder. Possible small bladder diverticulum on the left. IMPRESSION: 1. Right lower pole renal cyst measuring 2.6 cm. No left renal mass identified on provided images. 2. Trace right pelviectasis without hydronephrosis. 3. Thickened bladder wall measuring up to 9 mm anteriorly. Bladder wall thickening may be related to cystitis although other processes such as chronic bladder outlet obstruction or neoplasm cannot be excluded. Recommend correlation with urinalysis and further workup as needed.
[2018-04-18] MEDS: Metoprolol TARTRATE Tab 50 MG TAB PO SCH (20:37)
[2018-04-18] MEDS ORDERED: TAMSULOSIN 0.4 MG CAPSULE PO SCH (21:00)
--- NOTE | 2018-04-18 22:00 | EKG ---
[address] [address] Measurements Intervals [place] Rate: 49 P: 46 AR: 143 QRS: 27 QRSD: 113 T: 31 QT: 513 QTc: 483 Interpretive Statements SINUS BRADYCARDIA LOW QRS VOLTAGE IN EXTREMITY LEADS [QRS DEFLECTION < 0.5 mV IN LIMB LEADS] MODERATE INTRAVENTRICULAR CONDUCTION DELAY [110+ ms QRS DURATION] PROLONGED QT INTERVAL Compared to ECG 04/18/2018 10:55:01 Intraventricular conduction delay now present Electronically Signed On 04-20-18 09:54:11 MDT by Magdy Rios MD [email or web address]
[2018-04-19] MEDS: SODIUM BICARB IV SCH ×4 (02:34→12:34)
[2018-04-19] MEDS: D5 NS IV SCH ×4 (02:34→12:34)
[2018-04-19 05:29] LABS: BASOPHILS # (AUTO) 0.04 10*3/UL; BASOPHILS % (AUTO) 0.6 % (0-1); EOSINOPHILS # (AUTO) 0.71 10*3/UL; EOSINOPHILS % (AUTO) 10.6 % (0-8); Hematocrit [HCT] 30.9 % (42.0-52.0); Hemoglobin [HGB] 10.3 g/dL (14.0-18.0); LYMPHOCYTES # (AUTO) 0.55 10*3/uL; MEAN CORPUSCULAR HEMOGLOBIN 35.6 PG (27-31); MEAN CORPUSCULAR HGB CONC 33.3 g/dL (33-37); MEAN CORPUSCULAR VOLUME 106.9 FL (80-90); MONOCYTES # (AUTO) 0.38 10*3/UL (0.3-0.8); MONOCYTES % (AUTO) 5.7 % (5-15); NEUTROPHILS % (AUTO) 74.8 % (50-80); RED BLOOD COUNT 2.89 10^6/uL (4.70-6.10)
[2018-04-19 05:34] LABS: BLOOD UREA NITROGEN 13 mg/dL (7-22); BUN/CREATININE RATIO 21.66 (6-20); SERUM ALBUMIN 2.4 g/dL (3.5-4.8)
[2018-04-19 05:57] LABS: PLATELET MORPHOLOGY COMMENT NORMAL MORPHOLOGY (NORM); WBC MORPHOLOGY COMMENT NORMAL MORPHOLOGY (NORM)
[2018-04-19 05:58] LABS: RBC MORPHOLOGY COMMENT SEE COMMENTS (NORM)
[2018-04-19] MEDS ORDERED: OMEPRAZOLE 40 MG CAPSULE PO SCH (07:00)
[2018-04-19] MEDS: Metoprolol TARTRATE Tab 50 MG TAB PO SCH (08:31)
[2018-04-19] MEDS: NICOTINE 21 MG /DAY PATCH TRANSDERM SCH ×2 (08:31→08:32)
[2018-04-19] MEDS ORDERED: AmLODIPine Tab 5 MG TABLET PO SCH (09:00)
[2018-04-19] MEDS ORDERED: ENOXAPARIN SODIUM 40 MG/0.4 ML SYRINGE SUBCUT SCH (09:00)
[2018-04-19] MEDS ORDERED: MULTIVITAMIN WITH MINERALS PO SCH (09:00)
[2018-04-19] MEDS ORDERED: ASPIRIN 81 MG (BABY) CHEWABLE TABLET PO SCH (09:00)
--- NOTE | 2018-04-19 09:27 | EKG ---
[address] [address] Measurements Intervals [place] Rate: 53 P: 46 [place]: 149 QRS: 41 QRSD: 106 T: 29 QT: 469 QTc: 453 Interpretive Statements SINUS BRADYCARDIA LOW QRS VOLTAGE IN EXTREMITY LEADS [QRS DEFLECTION < 0.5 mV IN LIMB LEADS] Compared to ECG 04/18/2018 22:01:45 Intraventricular conduction delay no longer present Prolonged QT interval no longer present Electronically Signed On 04-20-18 09:55:02 MDT by Magdy Rios MD [email or web address]
[2018-04-19] MEDS ORDERED: SODIUM BICARBONATE 8.4% - 50 ML VIAL ONE (12:22)
[2018-04-19 12:32] VITALS: BP 107/53; RESP 20; TEMP 98.8; O2SAT 94
[2018-04-19] MEDS: SODIUM CHLORIDE 0.9% IV SCH (15:25)
[2018-04-19] MEDS: DAPTOMYCIN IV SCH (15:25)
[2018-04-19] MEDS ORDERED: HEPARIN 500 UNIT/5 ML SYRINGE FOR CENTRAL LINE IVP ONE (16:00)
[2018-04-19] MEDS ORDERED: HEPARIN 500 UNIT/5 ML SYRINGE FOR CENTRAL LINE IVP PRN (16:03)
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
[2018-04-19] MEDS ORDERED: Metoprolol TARTRATE Tab 50 MG TAB PO SCH (21:00)
== END 2018-04-19 17:10 | disposition home or self-care (01) | DRG 948 ==
LOC: ER 10:40 → MED/SURG 14:57
PROVIDERS: ADMIT Family Medicine; ATTEND Family Medicine

== ENCOUNTER 2018-04-28 11:12 | Inpatient (IN) ==
[2018-04-28] MEDS ORDERED: Sodium Chloride 0.9% 1,000 ML PRIMARY IV ONE (12:16)
[2018-04-28] MEDS ORDERED: IPRATROPIUM/ALBUTEROL SULFATE 3 ML NEB NEB ONE (12:39)
--- NOTE | 2018-04-28 13:05 | EKG ---
[address] [place] [address] Measurements Intervals [place] Rate: 71 P: 55 WA: 135 QRS: 128 QRSD: 103 T: 63 QT: 474 QTc: 496 Interpretive Statements SINUS RHYTHM INDETERMINATE AXIS LOW QRS VOLTAGE IN EXTREMITY LEADS INCOMPLETE RIGHT BUNDLE BRANCH BLOCK PROLONGED QT INTERVAL Compared to ECG 04/24/2018 18:25:06 Indeterminate axis now present Incomplete right bundle-branch block now present Left-axis deviation no longer present Poor R-wave progression no longer present Electronically Signed On 04-28-18 17:24:21 MDT by Mohit Bowman [email or web address]
[2018-04-28 13:10] LABS: BASOPHILS # (AUTO) 0.02 10*3/UL; BASOPHILS % (AUTO) 0.2 % (0-1); EOSINOPHILS # (AUTO) 0.35 10*3/UL; EOSINOPHILS % (AUTO) 3.9 % (0-8); Hematocrit [HCT] 30.4 % (42.0-52.0); Hemoglobin [HGB] 10.1 g/dL (14.0-18.0); LYMPHOCYTES # (AUTO) 0.76 10*3/uL; MEAN CORPUSCULAR HEMOGLOBIN 34.5 PG (27-31); MEAN CORPUSCULAR HGB CONC 33.2 g/dL (33-37); MEAN CORPUSCULAR VOLUME 103.8 FL (80-90); MEAN PLATELET VOLUME 8.5 FL (7.4-12.2); MONOCYTES # (AUTO) 0.36 10*3/UL (0.3-0.8); NEUTROPHILS # (AUTO) 7.43 10*3/UL; NEUTROPHILS % (AUTO) 83.1 % (50-80); RED BLOOD COUNT 2.93 10^6/uL (4.70-6.10)
[2018-04-28 13:22] LABS: BLOOD UREA NITROGEN 22 mg/dL (7-22); BUN/CREATININE RATIO 31.42 (6-20); SERUM ALBUMIN 2.4 g/dL (3.5-4.8)
[2018-04-28 13:24] LABS: PLATELET MORPHOLOGY COMMENT NORMAL MORPHOLOGY (NORM); RBC MORPHOLOGY COMMENT NORMAL MORPHOLOGY (NORM); WBC MORPHOLOGY COMMENT NORMAL MORPHOLOGY (NORM)
[2018-04-28 13:38] LABS: ABG PCO2 30 MMHG (34-38); ABG PH 7.53 (7.35-7.45); ABG PO2 45 MMHG (65-75); COLLECTION SITE R RADIAL
[2018-04-28 13:39] LABS: ABG BASE EXCESS 2 MMOL/L (-2-2); ABG OXYGEN SATURATION 87 % (90-100); ALLEN TEST Y
--- NOTE | 2018-04-28 14:35 | DI ---
PA /LATERAL CHEST, 04/28/2018 12:16 PM : Clinical History: Dyspnea. Previous Exam: 04/24/2018. There is no acute soft tissue or bony abnormality. There is a PICC line catheter inserted from the ri t arm and the tip of the catheter is in the superior vena cava. Heart size is normal. There is a di ffuse interstitial pattern present bilaterally with more involvement of the right lung than the left. On the prior exam, there are bilateral pleural effusions. The left pleural effusion has resolved com pletely. There may be a residual small right pleural effusion. There is pulmonary arterial hypertensi on. Overall there has been little interval change. There is a sharp almost 90 degree angle gibbous de formity at the thoracolumbar junction and the patient has had a multilevel lumbar fusions performed. Readin. There is a diffuse interstitial pattern that is similar to the previous exam. There is more invol vement in the right lung than on the left side. There is pulmonary arterial hypertension. 2. The left pleural effusion has resolved completely since last exam. There may still be a small rig ht pleural effusion. 3. 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
[2018-04-28] MEDS ORDERED: LIDOCAINE W/ SODIUM BICARB 0.5 ML SYR SUBD PRN (15:38)
[2018-04-28] MEDS ORDERED: FUROSEMIDE 10 MG/1 ML - 4 ML IVP ONE (15:43)
[2018-04-28] MEDS ORDERED: methylPREDNISolone 125 MG/2 ML VIAL IVP SCH (15:45)
[2018-04-28] MEDS ORDERED: Vancomycin-PHA to Dose IV PRN (15:45)
[2018-04-28] MEDS ORDERED: LIDOCAINE HCL 2 % 10 ML JELLY URO-JECT TOPICAL PRN (15:46)
--- NOTE | 2018-04-28 15:58 | PDOC ---
HPI - History of Present Illness Date of Service: 04/28/18 Time of Service: 15:00 Chief Complaint: Cough and shortness of breath of few weeks duration History of Present Illness: This is a 68 years old male with medical history significant for history of depression before, hypertension, history of recent osteomyelitis who is been on IV antibiotic with daptomycin, also recent admission to our hospital for altered mental status attributed to doubling by mistake on his psychotropic medications, he came into the hospital with history of shortness of breath and was found to be also hypoxic. He said since he had the surgery on his elbow he is been feeling short of breath the shortness of breath is exertional there is no chest pain he denied PND's and orthopnea but he did report swelling in his legs last week when he came in to receive his daptomycin the nursing staff noted hypoxia so he was sent to the ER evaluation then revealed pleural effusion in addition to bilateral lung infiltrate it was suggested that he get admitted to the hospital however he declined. He was discharged on Lasix and oxygen. Doesn't look like he was wearing his oxygen all the time and he did not fill the prescription until Friday and I'm not sure how many of the Lasix he took. Today when he came into the ER he was hypoxic and needed 5 L initially of oxygen he had multiple investigation showed worsening infiltrate in addition to elevated BNP and was admitted for CHF. Past Medical History Medical History: 1. Hypertension. 2. Anxiety disorder. 3. Alcohol abuse. 4. Tobacco abuse. 5. Obstructive sleep apnea. 6. Elbow infection, postoperative. 7. Depression. 8. GERD Surgical History: 1. Recent elbow surgery on left elbow. 2. Sinus surgery. 3. Back surgery. 4. Squamous carcinoma the skin removal. 5. Total knee replacement. 6. PICC line right upper extremity Family History: Reviewed an Not Pertinent Past Social History: Smokes the 4 cigarettes a day, used to smoke more than pack a day until he fractured his elbow, also used to drink moderate amounts every day but he quit he said since he had the surgery about 2 months ago. No drugs. Tobacco Use: Current Every Day Smoker In the Past 12 Months, Have Used or Abuse Any of the Following Substance: None Alcohol Use: None Medication / Allergies Home Medications: Home Medications 3 Medication Instructions Recorded Confirmed Type Aspirin 81 mg PO DAILY tab 12/13/16 04/24/18 History multivitamin with minerals tablet 1 tab PO QDAY tab 10/14/17 04/24/18 History tamsulosin 0.4 mg capsule 0.4 mg PO QHS #30 cap 01/13/18 04/24/18 Rx amlodipine 5 mg tablet 5 mg PO DAILY #30 tab 03/26/18 04/24/18 Rx DAPTOmycin Inj [Cubicin Inj] 450 mg IV Q24H vial 04/19/18 04/24/18 Rx Heparin Lock Inj [Heparin Lock Inj 500 unit IVP ONCE (ED) syringe 04/19/18 Rx (for [facility])] Losartan Potassium 100 mg PO DAILY #30 tab 04/19/18 04/24/18 Rx Meloxicam 7.5 mg PO BID #60 tab 04/19/18 04/24/18 Rx Metoprolol Tartrate Tab 50 mg PO BID #60 tab 04/19/18 04/24/18 Rx [Lopressor Tab] omeprazole 40 mg capsule,delayed 40 mg PO DAILY #30 cap 04/23/18 04/24/18 Rx release Allergies/Adverse Reactions: Allergies 3 Allergy/AdvReac Type Severity Reaction Status Date / Time penicillin V Allergy Unknown NOT Verified 04/24/18 16:21 APPLICABLE Sulfa (Sulfonamide Allergy NOT Verified 04/24/18 16:21 Antibiotics) APPLICABLE Exam - Vitals Vital Signs: Vital Signs Temperature 98.2 F Temperature Source Temporal Artery Scan Pulse Rate [Pulse Oximeter] 89 Pulse Rate 73 Respiratory Rate 25 Blood Pressure [Left Radial 130/79 Artery] Blood Pressure [Left Arm] 129/47 Pulse Ox 95 Oxygen Flow Rate 20 Oxygen Delivery Method Vapotherm Height 5 ft 6 in Weight 175 lb - General General Appearance: No Acute Distress Additional General Exam Details: Looks chronically ill - Head Head Exam: Normal Inspection - Eye Eye Exam: POSITIVE: Normal Appearance - ENT ENT Exam: POSITIVE: Normal Exam - Neck Neck Exam: Normal Inspection - Respiratory Additional Respiratory Exam Details: Very poor air entry but otherwise clear - Cardiovascular Cardiovascular Exam: POSITIVE: RRR - GI/Abdominal GI/Abdominal Exam: POSITIVE: Normal Bowel Sounds, Non Tender, Non Distended, Soft, No Organomegaly - Rectal Rectal Exam: POSITIVE: Deferred - External Exam: POSITIVE: Deferred - Extremities Additional Extremities Exam Details: Bilateral leg edema noted - Back Additional Back Exam Details: Gibbus deformity noted on the back - Neurological Neurological Exam: POSITIVE: Alert, Oriented x 3, CN II-XII Intact, No Facial Droop, Speech Intact / Clear, Moves All Extremities Equally - Psychiatric Psychiatric Exam: POSITIVE: Flat Affect - Integumentary Integumentary Exam: POSITIVE: Pallor Results - Labs CBC and BMP: 04/28/18 13:04 04/28/18 13:04 - Imaging Status: Report Reviewed by Me (Chest X ray 1. There is a diffuse interstitial pattern that is similar to the previous exam. There is more involvement in the right lung than on the left side. There is pulmonary arterial hypertension. 2. The left pleural effusion has resolved completely since last exam. There may still be a small right pleural effusion. 3. 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 I think we'll stop the daptomycin. I did speak with infectious disease they recommended vancomycin and Zosyn. However the patient is allergic to penicillin and sulfa I think will continue with the vancomycin. I did give him one dose ofLasix . They suggested transfer , I spoke with the patient about transferring he accepted transfer. I did speak with the hospitalist Dr. Casanova and he accepted him. Code(s): J84.9 - Interstitial pulmonary disease, unspecified (2) Congestive heart failure Current Visit: No Status: Acute Comment: The elevated BNP may be secondary to lung disease than heart disease, I think though with the peripheral edema will put him on IV Lasix. Code(s): I50.9 - Heart failure, unspecified (3) Hypokalemia Current Visit: Yes Status: Acute Comment: We'll give him potassium Code(s): E87.6 - Hypokalemia (4) Acute respiratory failure Current Visit: Yes Status: Acute Comment: Probably secondary to interstitial lung disease which is either due to an infection or secondary to daptomycin Code(s): J96.00 - Acute respiratory failure, unspecified whether with hypoxia or hypercapnia
[2018-04-28 16:36] LABS: BILIRUBIN,URINE MODERATE (NEG); COLOR,URINE ORANGE (Y); GLUCOSE, URINE (UA) NEGATIVE (NEG); OCCULT BLOOD,URINE NEGATIVE (NEG); PROTEIN,URINE TRACE mg/dl (NEG); UROBILINOGEN,URINE >8.0 EU/dL (0.2)
--- NOTE | 2018-04-28 16:40 | DCSUMMARY ---
Hospitalization Summary Admit Date: 04/28/2018 Discharge Date: 04/28/18 Hospital Course: Transfer diagnoses 1. Acute respiratory failure 2. Diffuse interstitial pattern with more involvement of the right lung than the left lung. 3. Small right pleural effusion 4. 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 History of osteomyelitis 6. Recent admission to our hospital for altered mental status attributed to psychotropic medications 7. History of hypertension 8. Hypokalemia Hospital course This is a 68 years old male with medical history significant for history of depression before, hypertension and history of recent osteomyelitis who is been on IV antibiotic with daptomycin, also recent admission to our hospital for altered mental status attributed to doubling by mistake on his psychotropic medications he came into the hospital with history of shortness of breath and was found to be also hypoxic. He said since he had the surgery on his elbow he is been feeling short of breath the shortness of breath is exertional there is no chest pain he denied PND's and orthopnea but he did report swelling in his legs. last week when he came in to receive his daptomycin the nursing staff noted hypoxia so he was sent to the ER evaluation then revealed bileteral effusion in addition to bilateral lung infiltrate it was suggested that he get admitted to the hospital however he declined. He was discharged on Lasix and oxygen. Doesn't look like he was wearing his oxygen all the time and he did not fill the prescription until Friday and I'm not sure how many of the Lasix he took. Today when he came into the ER he was hypoxic and needed 5 L initially of oxygen he had multiple investigation showed worsening infiltrate in addition to elevated BNP and was admitted for CHF. I did review his chest x-ray and CT since the the fourth and there is a progressive development of worsening infiltrates. I did speak with infectious disease as to me this is either a side effect of the daptomycin or also possible aspiration. Because of the complexity Dr Recinos felt that's better for the patient to be transferred to [facility]. I did give her a dose of vancomycin we discontinued the daptomycin and gave a dose of Lasix. We'll hold off on the steroid until he goes there and evaluated by infectious disease and the pulmonology. The patient did agree on transfer. Laboratory Results 04/28/18 04/28/18 04/28/18 Range/Units 13:04 13:04 13:04 WBC 8.95 (4.8-10.8) 10^3/uL RBC 2.93 L (4.70-6.10) 10^6/uL Hgb 10.1 L (14.0-18.0) g/dL Hct 30.4 L (42.0-52.0) % MCV 103.8 H (80-90) FL MCH 34.5 H (27-31) PG MCHC 33.2 (33-37) g/dL RDW Std Deviation 62.3 H (39-50) fL RDW Coeff of Kemar 17.7 H (11.5-14.5) % Plt Count 333 (140-350) 10*3/uL MPV 8.5 (7.4-12.2) FL Immature Gran % (Auto) 0.3 (0-5) % Neut % (Auto) 83.1 H (50-80) % Lymph % (Auto) 8.5 L (10-50) % [place] % (Auto) 4.0 L (5-15) % Eos % (Auto) 3.9 (0-8) % Baso % (Auto) 0.2 (0-1) % Immature Gran # (Auto) 0.03 10*3/UL Neut # (Auto) 7.43 10*3/UL Lymph # (Auto) 0.76 10*3/uL [place] # (Auto) 0.36 (0.3-0.8) 10*3/UL Eos # (Auto) 0.35 10*3/UL Baso # (Auto) 0.02 10*3/UL WBC Morphology Comment Normal morphology (NORM) Plt Morphology Comment Normal morphology (NORM) RBC Morph Comment Normal morphology (NORM) ABG pH (7.35-7.45) ABG pCO2 (34-38) MMHG ABG pO2 (65-75) MMHG ABG HCO3 (22-26) ABG Total CO2 (23-27) MMOL/L ABG O2 Saturation (90-100) % ABG Base Excess (-2-2) MMOL/L Rafal Test FiO2 Sodium 131 L (135-145) meq/L Potassium 3.1 L (3.8-5.2) meq/L Chloride 96 L (98-112) meq/L Carbon Dioxide 27 (23-33) meq/L Anion Gap 8 (5-20) BUN 22 (7-22) mg/dL Creatinine 0.7 (0.70-1.50) mg/dL Estimated GFR > 60 (>60 ml/min/1.73m(2)) BUN/Creatinine Ratio 31.42 H (6-20) Glucose 89 (78-110) mg/dL Calculated Osmolality 273.0 (267-292) mOsm/kg Calcium 7.7 L (8.7-10.7) mg/dL Total Bilirubin 2.9 H (0.3-1.2) mg/dL AST 18 L (21-57) IU/L ALT 30 (21-72) IU/L Alkaline Phosphatase 54 (38-126) IU/L Total Creatine Kinase 52 L (55-170) IU/L CK-MB (CK-2) 1.98 (0.00-5.00) NG/ML Troponin I 0.020 (< 0.040) ng/mL C-Reactive Protein 18.5 H (0.0-0.9) mg/dL NT-Pro-B Natriuret Pep 6120 H (0-125) PG/ML Total Protein 5.3 L (6.1-8.0) g/dL Albumin 2.4 L (3.5-4.8) g/dL Globulin 2.9 (2.50-4.10) g/dL Albumin/Globulin Ratio 0.80 L (1.3-2.0) mg/g Ur Collection Type Urine Color (Y) Urine Clarity (CLEAR) Urine pH (5.0-8.5) Ur Specific [place] (1.005-1.030) Urine Protein (NEG) mg/dl Urine Glucose (UA) (NEG) mg/dL Urine Ketones (NEG) Urine Occult Blood (NEG) Urine Nitrate (NEG) Urine Bilirubin (NEG) Urine Urobilinogen (0.2) EU/dL Ur Leukocyte Esterase (NEG) Urine RBC (NONE) /hpf Urine WBC (NONE) Ur Squamous Epith Cells (NONE) Ur Renal Epithelial Cell (NONE) Urine Crystals Urine Bacteria (NONE) Urine Casts (NONE) Urine Mucus (NONE) Urine Trichomonas (NONE) Urine Yeast (NONE) Ur Culture Indicated? 04/28/18 04/28/18 Range/Units 13:05 16:28 WBC (4.8-10.8) 10^3/uL RBC (4.70-6.10) 10^6/uL Hgb (14.0-18.0) g/dL Hct (42.0-52.0) % MCV (80-90) FL MCH (27-31) PG MCHC (33-37) g/dL RDW Std Deviation (39-50) fL RDW Coeff of Kemar (11.5-14.5) % Plt Count (140-350) 10*3/uL MPV (7.4-12.2) FL Immature Gran % (Auto) (0-5) % Neut % (Auto) (50-80) % Lymph % (Auto) (10-50) % [place] % (Auto) (5-15) % Eos % (Auto) (0-8) % Baso % (Auto) (0-1) % Immature Gran # (Auto) 10*3/UL Neut # (Auto) 10*3/UL Lymph # (Auto) 10*3/uL [place] # (Auto) (0.3-0.8) 10*3/UL Eos # (Auto) 10*3/UL Baso # (Auto) 10*3/UL WBC Morphology Comment (NORM) Plt Morphology Comment (NORM) RBC Morph Comment (NORM) ABG pH 7.53 H (7.35-7.45) ABG pCO2 30 L (34-38) MMHG ABG pO2 45 L (65-75) MMHG ABG HCO3 25 (22-26) ABG Total CO2 26 (23-27) MMOL/L ABG O2 Saturation 87 L (90-100) % ABG Base Excess 2 (-2-2) MMOL/L Rafal Test Y FiO2 5l nc Sodium (135-145) meq/L Potassium (3.8-5.2) meq/L Chloride (98-112) meq/L Carbon Dioxide (23-33) meq/L Anion Gap (5-20) BUN (7-22) mg/dL Creatinine (0.70-1.50) mg/dL Estimated GFR (>60 ml/min/1.73m(2)) BUN/Creatinine Ratio (6-20) Glucose (78-110) mg/dL Calculated Osmolality (267-292) mOsm/kg Calcium (8.7-10.7) mg/dL Total Bilirubin (0.3-1.2) mg/dL AST (21-57) IU/L ALT (21-72) IU/L Alkaline Phosphatase (38-126) IU/L Total Creatine Kinase (55-170) IU/L CK-MB (CK-2) (0.00-5.00) NG/ML Troponin I (< 0.040) ng/mL C-Reactive Protein (0.0-0.9) mg/dL NT-Pro-B Natriuret Pep (0-125) PG/ML Total Protein (6.1-8.0) g/dL Albumin (3.5-4.8) g/dL Globulin (2.50-4.10) g/dL Albumin/Globulin Ratio (1.3-2.0) mg/g Ur Collection Type Clean catch urine Urine Color [place] A (Y) Urine Clarity Slightly cloudy (CLEAR) Urine pH 6.0 (5.0-8.5) Ur Specific [place] 1.010 (1.005-1.030) Urine Protein Trace (NEG) mg/dl Urine Glucose (UA) Negative (NEG) mg/dL Urine Ketones Negative (NEG) Urine Occult Blood Negative (NEG) Urine Nitrate Positive H (NEG) Urine Bilirubin Moderate (NEG) Urine Urobilinogen >8.0 (0.2) EU/dL Ur Leukocyte Esterase Small (NEG) Urine RBC 9-14 A (NONE) /hpf Urine WBC 25-40 H (NONE) Ur Squamous Epith Cells None (NONE) Ur Renal Epithelial Cell None (NONE) Urine Crystals None Urine Bacteria Many H (NONE) Urine Casts None (NONE) Urine Mucus Moderate (NONE) Urine Trichomonas None (NONE) Urine Yeast None (NONE) Ur Culture Indicated? Culture set Discharge instruction Diet low-salt Activity as started Medications Active Medications Albuterol/Ipratropium (Duoneb Neb Soln) 3 ml NEB RTQ6H FARIBA Aspirin (Aspirin Chewable Tab) 81 mg PO DAILY FARIBA Furosemide (Lasix Inj) 40 mg IVP BID@0700,1300 [facility] Sodium Chloride (Normal Saline 0.9%) 25 mls @ 200 mls/hr IV .Post Infusion PRN PRN Reason: Flush Vancomycin HCl 1 gm/ Sodium (Chloride) 250 mls @ 250 mls/hr IV Q8H [facility] Last Admin: 04/28/18 16:53 Dose: 250 mls/hr Lidocaine HCl (Lidocaine Buffered Inj) 0.5 ml SUBD ONCE PRN PRN Reason: IV Starts Lidocaine HCl (Xylocaine Uro-Ject 2%) 10 ml TOPICAL ONCE PRN PRN Reason: Discomfort catheter insertion Last Admin: 04/28/18 16:25 Dose: 10 ml Losartan Potassium (Cozaar) 100 mg PO DAILY [facility] Metoprolol Tartrate (Lopressor Tab) 50 mg PO BID FARIBA Omeprazole (Prilosec) 40 mg PO DAILY [facility] Tamsulosin HCl (Flomax) 0.4 mg PO BEDTIME FARIBA Follow-up per [facility] post discharge Exam - Vitals Vital Signs: Vital Signs Temperature 98.2 F Temperature Source Temporal Artery Scan Pulse Rate [Pulse Oximeter] 89 Pulse Rate 73 Respiratory Rate 25 Blood Pressure [Left Radial 130/79 Artery] Blood Pressure [Left Arm] 129/47 Pulse Ox 95 Oxygen Flow Rate 20 Oxygen Delivery Method Vapotherm Height 5 ft 6 in Weight 175 lb Patient Problems - Patient Problem List (1) Interstitial lung disease Status: Acute Code(s): J84.9 - Interstitial pulmonary disease, unspecified Category: Medical (2) Congestive heart failure Status: Acute Code(s): I50.9 - Heart failure, unspecified Category: Medical
[2018-04-28 16:43] LABS: CLARITY,URINE SLIGHTLY CLOUDY (CLEAR)
[2018-04-28] MEDS ORDERED: POTASSIUM CHLORIDE 20 MEQ TAB PO ONE (16:43)
[2018-04-28 16:44] LABS: BACTERIA,URINE MANY; URINE SAMPLE TYPE CLEAN CATCH URINE; WBC,URINE 25-40
[2018-04-28 16:51] VITALS: RESP 27; TEMP 98.7; O2SAT 92
[2018-04-28] MEDS ORDERED: Sodium Chloride 0.9% 1,000 ML ONE (16:51)
[2018-04-28 17:34] VITALS: BP 132/58
[2018-04-28] MEDS ORDERED: IPRATROPIUM/ALBUTEROL SULFATE 3 ML NEB NEB SCH (19:00)
[2018-04-28] MEDS ORDERED: TAMSULOSIN 0.4 MG CAPSULE PO SCH (21:00)
[2018-04-28] MEDS ORDERED: Metoprolol TARTRATE Tab 50 MG TAB PO SCH (21:00)
[2018-04-29] MEDS ORDERED: FUROSEMIDE 10 MG/1 ML - 4 ML IVP SCH (07:00)
--- NOTE | 2018-04-29 07:51 | PDOC ---
Dyspnea HPI - General Chief Complaint: General Medical Stated Complaint: FAILURE TO THRIVE Date Seen by Provider: 04/28/18 Time Seen by Provider: 12:00 Source: POSITIVE: Patient, Other (ex-, daughter) Exam Limitations: POSITIVE: No limitations Treatment Prior to Arrival: REPORTS: Oxygen Nurse's Notes Reviewed & Considered: Yes - History of Present Illness Initial Comments: The patient is a 68-year-old male who was brought to the emergency room by his daughter and ex-. Patient and his family state that the patient lives alone and has become progressively weak and unable to care for himself. He is been short of breath. He is supposed to be on oxygen at home, 6 L/m. He has been "stumbling around" but has not had any falls. No syncope. Patient was seen in the emergency room Friday, 4 days ago. At that time the patient was found to be hypoxic and to have prominent interstitial changes on his lung on chest x-ray, compatible with congestive heart failure and pulmonary fibrosis. Patient was admitted to the hospital 04/18/2018 for similar symptoms. He was supposed to be on oxygen, but the patient did not get his oxygen prescription filled. Patient was started on oxygen during his visit on 04/24/2018. Patient was also started on Lasix. Patient apparently did not get his Lasix prescription filled. It was recommended to the patient that he be admitted on 04/24/2018, but the patient refused admission. Since discharge from the emergency room patient's condition has not improved and so with the patient's daughter and ex- intervened today and brought the patient here. Patient continues to smoke. Patient reportedly had an SaO2 on room air this morning of 70%. Patient lives alone. Patient has a history of having sustained a left elbow fracture and is presently undergoing IV antibiotic therapy at the infusion center. He has bilateral pitting edema. Body Location Affected: REPORTS: Lower Extremity (L) (Dyspnea), Lower Extremity (R) (Pitting edema bilaterally), Chest Timing: REPORTS: Gradual, Getting Worse Duration: Unknown Severity: Moderate Quality: REPORTS: Other (Patient denies any pain anywhere) Initiating Event: DENIES: Upper Respiratory Illness, Out of Medications, Sports , Exercise, Aspiration, Choking, Allergy, Exposure - Smoke, Exposure - Mold, Exposure - Other Allergen Context: REPORTS: Other (Progressive weakness and dyspnea) Exacerbated By: REPORTS: Exertion Associated Symptoms: REPORTS: Leg Swelling (Bilateral pedal edema). DENIES: Fever, Chills, Sweating, Chest Pain, Chest Discomfort, Left Chest, Right Chest, Central Chest, Chest Heaviness, Chest Tightness, Painful Breathing, Radiation to Back, Radiation to Jaw, Radiation to Arm, Bloody Cough, Productive Cough, Heart Racing, Leg Pain, Calf Pain, Ankle Swelling, Dizziness, Light-Headedness, Anxiety, Tingling - Hands, Tingling - Face, Muscle Spasms - Hands, Muscle Spasms - Feet Similar Symptoms Previously: Yes Recently seen/treated/hospitalized: Yes Any Prior Injuries Related to Current Complaint?: No - Patient Home Medications Home Medications: Home Medications Aspirin 81 mg PO DAILY tab 12/13/16 multivitamin with minerals tablet 1 tab PO QDAY tab 10/14/17 tamsulosin 0.4 mg capsule 0.4 mg PO QHS #30 cap 01/13/18 amlodipine 5 mg tablet 5 mg PO DAILY #30 tab 03/26/18 DAPTOmycin Inj [Cubicin Inj] 450 mg IV Q24H vial 04/19/18 Heparin Lock Inj [Heparin Lock Inj (for Central Line)] 500 unit IVP ONCE (ED) syringe 04/19/18 Losartan Potassium 100 mg PO DAILY #30 tab 04/19/18 Meloxicam 7.5 mg PO BID #60 tab 04/19/18 Metoprolol Tartrate Tab [Lopressor Tab] 50 mg PO BID #60 tab 04/19/18 omeprazole 40 mg capsule,delayed release 40 mg PO DAILY #30 cap 04/23/18 - Patient Allergies Allergies/Adverse Reactions: Allergies 3 Allergy/AdvReac Type Severity Reaction Status Date / Time penicillin V Allergy Unknown NOT Verified 04/28/18 17:36 APPLICABLE Sulfa (Sulfonamide Allergy NOT Verified 04/28/18 17:36 Antibiotics) APPLICABLE Past Medical History - heen HEENT History: Denies History Cardiovascular History: Hypertension Respiratory History: COPD, Shortness of Breath, Home Oxygen Use, Home CPAP Use, Other (please comment) Additional Respiratory History: pt has been noncompliant with wearing home oxygen and CPAP Gastrointestinal History: Denies History Genitourinary History: Denies History Endocrine History: Denies History Musculoskeletal History: Arthritis, Back Pain Prosthesis or Implant: No Additional Musculoskeletal History: SEVERE BACK ISSUES. BACK HAS RODS THAT HAVE BROKEN OR SHIFTED. BACK IS CROOKED. CURRENTLY HAS INFECTION IN LEFT ELBOW Neurological History: Denies History Blood Disorders: Denies History Psychiatric History: Anxiety Disorders History of Sexually Transmitted Diseases: No Male Reproductive History: Denies History Cancer History: Other (please comment) Cancer Treatment / Date(s) of Treatment: 25 YR AGO In Past Year Been Physically Harmed or Verbally Threatened: No History of MDRO: Unknown Type of MDRO: MRSA Other Type of MDRO: STAPH INFECTION LEFT ELBOW History of Other Communicable Diseases: No Tobacco Use: Current Every Day Smoker In the Past 12 Months, Have Used or Abuse Any Substance: None Previous Surgical History: Yes Type / Date of Surgery: TONSILS, back, knee, LEFT ELBOW Anesthesia Reactions: No Malignant Hyperthermia: No Significant Family History: No pertinent family hx Past Medical History Reviewed: Reviewed - No Changes ROS - Limitations ROS Limitations: No Limitations Constitution: REPORTS: Weakness Cardiovascular: REPORTS: Denies Cardiac Symptoms Respiratory: REPORTS: Shortness Of Breath Neurological: REPORTS: Denies Neuro Symptoms Gastrointestinal: REPORTS: Denies GI Symptoms Endocrine: REPORTS: Denies Symptoms Musculoskeletal: REPORTS: Denies MS Symptoms Genitourinary: REPORTS: Denies Symptoms Eyes: REPORTS: Denies Symptoms ENT: REPORTS: Denies Symptoms Skin: REPORTS: Denies Skin Symptoms Lympathic: REPORTS: Denies Lympathic Symptoms Immunologic: POSITIVE: Denies Symptoms Psychiatric: POSITIVE: Denies Psych Symptoms Dyspnea Physical Exam - General Appearance General Appearance: REPORTS: Alert, Cooperative, No Acute Distress, No Evidence of Trauma - HEENT HEENT: POSITIVE: Head Inspection Nml, Eyes Inspection Nml, Ears Inspection Nml, Nose Inspection Nml, Oral/Dental Inspect. Nml, Pharynx Inspect. Nml, PERRL, EOMI - Neck Neck: REPORTS: Normal Inspection, No Carotid Bruit - Respiratory Respiratory: REPORTS: No Pleuritic Chest Pain, Speaks Full Sentences, No Pain on Inspiration, Respiratory Distress (Hypoxic), Rales (Rales and crackles both lung [place]), Decreased Air Movement. DENIES: No Respiratory Distress (SaO2 89 % on 4 L), Breath Sounds Normal (Rales and crackles both lung [place]), Prolonged Expirations, Accessory Muscle Use, Retractions, Splinting, Dull on Percussion, Chest Wall Tenderness, Speaks Broken Sentences, Stridor, Respiratory Failure - Cardiovascular Cardiovascular: REPORTS: Regular Rate and Rhythm, Heart Sounds Normal, Equal Pulses, Strong Pulses, No Murmur, No Gallop, No Friction Rub, No JVD Peripheral Pulses: Radial (R): 2+, Radial (L): 2+ - Abdomen Abdomen: Soft: (All Quadrants), Normal Bowel Sounds: (All Quadrants), Denies Tenderness: (All Quadrants), No Splenomegaly: (All Quadrants), No Hepatomegaly: (All Quadrants), No Guarding: (All Quadrants), No Rebound: (All Quadrants), No Palpable Pulse: (All Quadrants), No Palpabale Mass: (All Quadrants), No Distention: (All Quadrants), No Rigidity: (All Quadrants) - Skin Skin: REPORTS: Intact, Normal For Race, Warm, Dry, No Rash - Extremities Extremity: Non-Tender: (All Extremities), Normal ROM: (All Extremities), Normal Inspection: (RUE), (LUE), Pelvis Stable: (All Extremities), Normal Tendon Exam: (All Extremities), Edema / Swelling: (RLE), (LLE) (bilateral pitting pedal edema ) - Neurological / Psychological Neurological: POSITIVE: Affect 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 gibbus deformity thoracal lumbar area CBC and BMP: 04/28/18 13:04 04/28/18 13:04 Lab Results:: Laboratory Results 3 04/28/18 04/28/18 04/28/18 13:04 13:04 13:04 WBC 8.95 RBC 2.93 L Hgb 10.1 L Hct 30.4 L MCV 103.8 H MCH 34.5 H MCHC 33.2 RDW Std Deviation 62.3 H RDW Coeff of Kemar 17.7 H Plt Count 333 MPV 8.5 Immature Gran % (Auto) 0.3 Neut % (Auto) 83.1 H Lymph % (Auto) 8.5 L [place] % (Auto) 4.0 L Eos % (Auto) 3.9 Baso % (Auto) 0.2 Immature Gran # (Auto) 0.03 Neut # (Auto) 7.43 Lymph # (Auto) 0.76 [place] # (Auto) 0.36 Eos # (Auto) 0.35 Baso # (Auto) 0.02 WBC Morphology Comment Normal morphology Plt Morphology Comment Normal morphology RBC Morph Comment Normal morphology ABG pH ABG pCO2 ABG pO2 ABG HCO3 ABG Total CO2 ABG O2 Saturation ABG Base Excess Rafal Test FiO2 Sodium 131 L Potassium 3.1 L Chloride 96 L Carbon Dioxide 27 Anion Gap 8 BUN 22 Creatinine 0.7 Estimated GFR > 60 BUN/Creatinine Ratio 31.42 H Glucose 89 Calculated Osmolality 273.0 Calcium 7.7 L Total Bilirubin 2.9 H AST 18 L ALT 30 Alkaline Phosphatase 54 Total Creatine Kinase 52 L CK-MB (CK-2) 1.98 Troponin I 0.020 C-Reactive Protein 18.5 H NT-Pro-B Natriuret Pep 6120 H Total Protein 5.3 L Albumin 2.4 L Globulin 2.9 Albumin/Globulin Ratio 0.80 L 3 04/28/18 13:05 WBC RBC Hgb Hct MCV MCH MCHC RDW Std Deviation RDW Coeff of Kemar Plt Count MPV Immature Gran % (Auto) Neut % (Auto) Lymph % (Auto) [place] % (Auto) Eos % (Auto) Baso % (Auto) Immature Gran # (Auto) Neut # (Auto) Lymph # (Auto) [place] # (Auto) Eos # (Auto) Baso # (Auto) WBC Morphology Comment Plt Morphology Comment RBC Morph Comment ABG pH 7.53 H ABG pCO2 30 L ABG pO2 45 L ABG HCO3 25 ABG Total CO2 26 ABG O2 Saturation 87 L ABG Base Excess 2 Rafal Test Y FiO2 5l nc Sodium Potassium Chloride Carbon Dioxide Anion Gap BUN Creatinine Estimated GFR BUN/Creatinine Ratio Glucose Calculated Osmolality Calcium Total Bilirubin AST ALT Alkaline Phosphatase Total Creatine Kinase CK-MB (CK-2) Troponin I C-Reactive Protein NT-Pro-B Natriuret Pep Total Protein Albumin Globulin Albumin/Globulin Ratio EKG Interpreted/Reviewed By Me:: Yes (normal sinus rhythm; no acute changes) EKG Interpretation:: POSITIVE: Normal Sinus Rhythm, Normal Rate, Normal Intervals, Normal [place], Normal QRS, Normal ST/T - Patient's Progress Pain Medication Addressed: POSITIVE: Not Applicable School/Work Release Addressed: POSITIVE: Not Applicable Re-Examine Time: 14:00 Re-Examine Comment: Diagnosis of pulmonary fibrosis and congestive heart failure again discussed with patient. Also discussed with his ex-. Case discussed with hospitalist, Dr. Callahan. Patient maintaining his SaO2 at 5 L/m at around 91%. Patient started on Vapotherm. Patient admitted by hospitalist for further evaluation and treatment. Status: POSITIVE: Unchanged, Re-Examined - Consult Consult (If Yes, Name of Consulting MD & Time Called): Yes (Dr. Callahan, hospitalist, 1400) Consulting MD will see pt:: POSITIVE: [facility] [place] Admit Counseled: POSITIVE: Patient, Family, RE: Lab Results, RE: Radiology Results, RE : DX, RE: Need for F/U Patient Care Time - Estimated PCT Patient Care Time (In Minutes): 60 Discharge Clinical Impression: Congestive heart failure, Interstitial lung disease, Hypoxia Discharge Disposition: Admit to Inpatient Condition: Serious Date Decision to Admit to Inpatient: 04/28/18 Time Decision to Admit to Inpatient: 14:00
[2018-04-29] MEDS ORDERED: LOSARTAN 50 MG TABLET PO SCH (09:00)
[2018-04-29] MEDS ORDERED: ASPIRIN 81 MG (BABY) CHEWABLE TABLET PO SCH (09:00)
[2018-04-29] MEDS ORDERED: OMEPRAZOLE 40 MG CAPSULE PO SCH (09:00)
== END 2018-04-28 17:45 | disposition short-term general hospital (02) | DRG 196 ==
LOC: ER 11:12 → MED/SURG 14:28
PROVIDERS: ADMIT Internal Medicine; ATTEND Internal Medicine

== ENCOUNTER 2018-07-22 13:05 | Inpatient (IN) ==
[2018-07-22] MEDS ORDERED: CALCIUM CARBONATE 500 MG (TUMS) CHEWABLE TABLET PO PRN (13:09)
[2018-07-22] MEDS ORDERED: LIDOCAINE W/ SODIUM BICARB 0.5 ML SYR SUBD PRN (13:09)
[2018-07-22] MEDS ORDERED: LIDOCAINE HCL 2 % 10 ML JELLY URO-JECT TOPICAL PRN (13:11)
[2018-07-22] MEDS ORDERED: NYSTATIN 15 GM POWDER TOPICAL PRN (13:11)
[2018-07-22] MEDS: ALBUTEROL SULFATE 8.5 GM HFA INHALER INH PRN ×2 (13:37→18:24)
[2018-07-22] MEDS: HYDROcodone-APAP 7.5 MG-325 MG TABLET PO PRN ×2 (15:48→20:23)
--- NOTE | 2018-07-22 17:04 | PDOC ---
HPI - History of Present Illness Date of Service: 07/22/18 Time of Service: 12:00 Chief Complaint: Possible infected decubitus ulcer History of Present Illness: Shar is a 68-year-old male with a complicated past medical history but recently includes chronic osteomyelitis of the left elbow, recent right distal femur fracture, periprosthetic for which the patient is still nonweightbearing, and chronic obstructive urine retention requiring self-catheterization a Vu catheterization. He is awaiting placement of a suprapubic catheter. The patient has unknown large hump in the back related to abnormal filling after some back surgeries that were done remotely. Around May of this year, the patient reports some skin breakdown and he was noted to have a stage II decubitus ulcer on his back in this region. It's a thoracolumbar decubitus ulcer. The whole area is somewhat more tender, and he states that he's having a lot more aches in his joints then he has had recently. He had an infectious disease appointment and there was concern that this could be infected and might need an incision and drainage. Neurosurgery was contacted and they recommended MRI scans. Given the complexity of this workup, need to rule out a soft tissue skin infection and abscess in the thoracolumbar region, the patient is being admitted as an inpatient for further evaluation, workup, potential antibiotics, and other evaluation and treatment. He's never had an infection there before. Aside from dressings with Mepilex and continued wound care therapy with physical therapy, there have been no other interventions done. Past Medical History Medical History: 1. Hypertension. 2. Anxiety disorder. 3. Alcohol abuse. 4. Tobacco abuse. 5. Obstructive sleep apnea. 6. Elbow infection, postoperative, chronic osteomyelitis. 7. Depression. 8. GERD. 9. Hypersensitivity pneumonitis secondary to daptomycin. 10. Right femur fracture status post surgery done 06/04/2018 at [facility] ( periprosthetic) Surgical History: 1. Recent elbow surgery on left elbow. 2. Sinus surgery. 3. Back surgery. 4. Squamous carcinoma the skin removal. 5. Total knee replacement. 6. PICC line right upper extremity Family History: Reviewed an Not Pertinent Past Social History: Smokes the 4 cigarettes a day, although currently not smoking on the swing bed, used to smoke more than pack a day until he fractured his elbow, also used to drink moderate amounts every day but he quit he said since he had the surgery on his elbow, no drug use. Tobacco Use: Former Smoker In the Past 12 Months, Have Used or Abuse Any of the Following Substance: None Alcohol Use: Heavy Medication / Allergies Home Medications: Home Medications 3 Medication Instructions Recorded Confirmed Type Aspirin 81 mg PO DAILY tab 12/13/16 06/10/18 History multivitamin with minerals tablet 1 tab PO QDAY tab 10/14/17 06/10/18 History omeprazole 40 mg capsule,delayed 40 mg PO DAILY #30 cap 05/13/18 06/10/18 Rx release tamsulosin 0.4 mg capsule 0.4 mg PO QHS #30 cap 05/13/18 06/10/18 Rx olanzapine 10 mg tablet 10 mg PO QDAY tab 05/22/18 06/10/18 History metoprolol tartrate 50 mg tablet 50 mg PO BID #60 tab 05/26/18 06/10/18 Rx Bacitracin Oint 14.2 gm tube 1 applic TOPICAL BID tube 07/22/18 Rx [Bacitracin Ointment 14.2 gm tube] Cephalexin [Keflex] 1,000 mg PO BID cap 07/22/18 Rx Clotrimazole Cream 1% [Lotrimin 1 applic TOPICAL BID tube 07/22/18 Rx Cream 1%] Docusate Sodium [Colace] 100 mg PO BID cap 07/22/18 Rx FLUoxetine HCl [PROzac] 20 mg PO DAILY cap 07/22/18 Rx Gabapentin [Neurontin] 600 mg PO BID cap 07/22/18 Rx HYDROcodone/APAP 7.5/325 Tab 1 - 2 tab PO Q4H PRN tab 07/22/18 Rx [[place] 7.5/325 Tab] Lidocaine Uro-Ject 2% [Xylocaine 10 ml TOPICAL ONCE PRN jelly 07/22/18 Rx Uro-Ject 2%] Nystatin Powder [Mycostatin Powder] 1 applic TOPICAL TID PRN bottle 07/22/18 Rx Oxybutynin Chloride ER [Ditropan 15 mg PO DAILY tab.er.24 07/22/18 Rx Xl] Tiotropium Inhalation Cap 18 mcg INH RTDAILY inhaler 07/22/18 Rx [Spiriva Inhalation Cap] Allergies/Adverse Reactions: Allergies 3 Allergy/AdvReac Type Severity Reaction Status Date / Time penicillin V Allergy Unknown NOT Verified 07/22/18 06:33 APPLICABLE Sulfa (Sulfonamide Allergy NOT Verified 07/22/18 06:33 Antibiotics) APPLICABLE Review of Systems - Constitutional Constitutional: REPORTS: Diffuse Myalgias, Malaise - Respiratory Respiratory: REPORTS: Negative System Review - Cardiovascular Cardiovascular: REPORTS: Negative System Review - Gastrointestinal Gastrointestinal / Abdominal: REPORTS: Negative System Review - Genitourinary Genitourinary: REPORTS: Other (Chronic urinary retention. Has to use catheter. Awaiting suprapubic catheter placement) - Neurological Neurologic: REPORTS: Negative System Review - Psychiatric Psychiatric: REPORTS: Depressed (Chronic depression.) Exam - Vitals Vital Signs: Vital Signs Temperature 97.8 F Temperature Source Temporal Artery Scan Pulse Rate [Pulse Oximeter] 65 Pulse Rate [Apical] 73 Respiratory Rate 20 Blood Pressure [Right Arm] 125/51 Pulse Ox 93 Oxygen Delivery Method Room Air Height 6 ft Weight 158 lb 4 oz - General General Appearance: No Acute Distress, Cooperative - Head Head Exam: Normal Inspection, Normocephalic, Atraumatic - Eye Eye Exam: POSITIVE: No Scleral Icterus - ENT ENT Exam: POSITIVE: Mucous Membranes Moist - Neck Neck Exam: Normal Inspection, No Tenderness, No Lymphadenopathy, No Thyromegaly - Respiratory Respiratory Exam: POSITIVE: Clear to Auscultation - Bilaterally, Breathing Non Labored - Cardiovascular Cardiovascular Exam: POSITIVE: RRR, No Murmur, No Clicks, No Gallops, No Rubs, No JVD - GI/Abdominal GI/Abdominal Exam: POSITIVE: Normal Bowel Sounds, Non Tender, Non Distended, Soft - Rectal Rectal Exam: POSITIVE: Deferred - External Exam: POSITIVE: Deferred Exam: POSITIVE: Deferred - Extremities Extremities Exam: POSITIVE: No Clubbing Present, No Edema Present, No Cyanosis Present Additional Extremities Exam Details: Right lower extremity, no edema. Laying in bed, brace off the bed. - Back Back Exam: POSITIVE: Paraspinal Tenderness, Vertebral Tenderness Additional Back Exam Details: There is a large, soft ball sized chronic thoracolumbar deformity with skin and soft tissue that appears more boggy, almost bruised-like appearance, with a central area of a stage II decubitus ulcer, present on this admission, and per the patient presents since May 2018. The center of it does not look infected and it does not look like it is draining pus. It is tender to palpation. - Neurological Neurological Exam: POSITIVE: Alert, Oriented x 3, No Facial Droop, Speech Intact / Clear Results - Labs Additional Lab Results: 07/20/18 07/20/18 04:50 04:50 WBC 5.75 Hgb 11.7 L Hct 34.8 L Plt Count 260 Sodium 134 L Potassium 4.2 Chloride 103 Carbon Dioxide 24 Anion Gap 7 BUN 10 Creatinine 0.6 L Estimated GFR > 60 BUN/Creatinine Ratio 16.66 Glucose 94 Calculated Osmolality 276.0 Total Bilirubin 0.9 AST 13 L ALT 20 L Alkaline Phosphatase 62 C-Reactive Protein 4.7 H Total Protein 5.4 L Albumin 2.7 L Globulin 2.7 Albumin/Globulin Ratio 1.00 L Urine cultures over the course of July, reviewed, chronic Pseudomonas and Proteus urinary colonization without signs or symptoms of infection. - Imaging Status: Image Pending (I have ordered MRI scans of the lumbar and thoracic region with and without contrast. These study reports are pending.) Assessment and Plan - Patient Problems (1) Cellulitis of back Current Visit: Yes Status: Suspected Code(s): L03.312 - Cellulitis of back [ any part except buttock] (2) Decubitus ulcer Current Visit: Yes Status: Acute Comment: Could be cellulitic versus abscess. Code(s): L89.90 - Pressure ulcer of unspecified site, unspecified stage Qualifiers: Pressure injury location: lower back Pressure injury stage: stage 2 Laterality: left Qualified Code(s): L89.142 - Pressure ulcer of left lower back, stage 2 (3) Coronary artery disease Current Visit: Yes Status: Chronic Code(s): I25.10 - Atherosclerotic heart disease of [place] coronary artery without angina pectoris Qualifiers: Coronary Disease-Associated Artery/Lesion type: [place] artery [place] vs. transplanted heart: [place]nee heart Associated angina: without angina Qualified Code(s): I25.10 - Atherosclerotic heart disease of [place] coronary artery without angina pectoris (4) Right femoral fracture Current Visit: Yes Status: Chronic Code(s): S72.91XA - Unspecified fracture of right femur, initial encounter for closed fracture Qualifiers: Encounter type: subsequent encounter Femur location: unspecified portion of femur Fracture type: closed Fracture morphology: unspecified fracture morphology Fracture healing: with routine healing Qualified Code(s): S72.91XD - Unspecified fracture of right femur, subsequent encounter for closed fracture with routine healing (5) Depression Current Visit: Yes Status: Acute Code(s): F32.9 - Major depressive disorder , single episode, unspecified Qualifiers: Depression Type: other depression Qualified Code(s): F32.89 - Other specified depressive episodes (6) BPH (benign prostatic hyperplasia) Current Visit: Yes Status: Chronic Code(s): N40.0 - Benign prostatic hyperplasia without lower urinary tract symptoms Qualifiers: Lower urinary tract symptom presence: symptoms present Lower urinary tract symptom detail: unspecified Qualified Code(s): N40.1 - Benign prostatic hyperplasia with lower urinary tract symptoms (7) Osteomyelitis of left humerus Current Visit: No Status: Acute Code(s): M86.9 - Osteomyelitis, unspecified Qualifiers: Osteomyelitis type: other chronic Qualified Code(s): M86.622 - Other chronic osteomyelitis, left humerus (8) Urinary retention Current Visit: No Status: Acute Onset Date: 12/13/16 Code(s): R33.9 - Retention of urine, unspecified (9) Essential hypertension Current Visit: No Status: Acute Onset Date: 12/13/16 Code(s): I10 - Essential (primary) hypertension - Assessment / Plan Additional Assessment/Plan Details: Readmit the patient is an inpatient. Continue antibiotics, Keflex twice a day. Get MRI scans to look for potential abscess on this pressure ulcer. PT and OT will also get PT involved wound care therapy. Await neurosurgical opinion, Dr. Penaloza seen the patient, but is waiting on MRI scans. Check labs in a.m.
[2018-07-22] MEDS: CYCLOBENZAPRINE 10 MG TABLET PO PRN (17:30)
[2018-07-22] MEDS: Metoprolol TARTRATE Tab 50 MG TAB PO SCH (20:22)
[2018-07-22] MEDS: TAMSULOSIN 0.4 MG CAPSULE PO SCH (20:22)
[2018-07-22] MEDS: DOCUSATE 100 MG CAPSULE PO SCH (20:22)
[2018-07-22] MEDS: GABAPENTIN 300 MG CAPSULE PO SCH (20:23)
[2018-07-22] MEDS: CEPHALEXIN 500 MG CAPSULE PO SCH (20:23)
[2018-07-22] MEDS: CLOTRIMAZOLE 28.35 GM CREAM TOPICAL SCH (20:23)
[2018-07-22] MEDS: Bacitracin Oint 14.2 gm tube 14 APPLIC/14.2 GM TUBE TOPICAL SCH (20:24)
--- NOTE | 2018-07-22 20:34 | CONSULT ---
Consult Note - Consult Reason for Consult: Other (Consult on floor patient in swing bed.) Requesting Physician: Mr. Callahan Primary Care Provider: Agus Ramires MD - History of Present Illness History of Present Illness: Mr. Shar Benedict is a 68 y.o gentleman with a complex medical history in a swing bed because he non-weight bearing on healing surgically treated right distal femur fracture that occurred on June 04. He has chronic osteomyelitis of the left elbow which he fractured in February. He has a stage II decubitus ulcer over a chronic kyphotic angulation of the spine above a previous lumbar fusion. He states that this ulcer developed when he was hospitalized in an ICU in May. Mr. Benedict's lumbar fusion he states was performed by Dr. Espana in [place] in 2005. He states that his spine has been angulated above the fusion chronically for approximately the past eight years. He has been seen by a number of spine surgeons over the years, most recently Dr. Rao in [place] around October 2017 /November 2017 time frame, stating that he could do a anterior reconstruction or his spine. This is according to Mr. Benedict. Mr. Benedict has chronic back pain including in the region of the kyphotic angulation of his spine above his fusion. He has been from the ulceration. He denies significant increase in his chronic back including in the region of the deformity. He denies any new lower extremity symptoms. PMHX: Hypertension. Anxiety. Alcohol abuse. Tobacco abuse. Obstructive sleep apnea. GERD. Left elbow post-operative chronic osteomyelitis. Recent right femur fracture, treated surgically 06/04, currently non-weight bearing. SHx: Right femur fracture repair - 06/04/2018. Left elbow fracture repair - 02/2018. Extensive lumbar fusion - 2005 (Dr. Espana/[place]). Total Knee replacement. Family Hx: Non-contributory. Social Hx: Smoker, history of heavy alcohol use. Medications: See chart. Medication Allergies: Penicillin, Sulfa. ROS: Negative except for diffuse aches and pains. Exam: Awake, alert, oriented. Cooperative. No distress. Moves all extremities well. Stage II decubitus ulcer over kyphotic angulation deformity of the spine at the thoracolumbar junction with soft tissue swelling/possible palpable fluid collection underlying ulcerated area. Ulceration does not appear to be infected and with no drainage. Imaging: MRI scans of the thoracic and lumbar spines ordered today with and without contrast and performed. I reviewed imaging studies with Dr. Muir. Studies demonstrate a L1-S1 lumbar posterolateral instrumented fusion. There if a chronic fracture of T12 with the majority of the lower aspect of the T12 vertebral body and T12-L1 disc space replaced with a fluid collection that does not communicate with the thecal sac or the subcutaneous tissues. The chronic fluid collection is non-enhancing. There is no enhancement of the surrounding soft tissues. There is no epidural fluid collection, but there is severe spinal stenosis dorsal to the T12 veretebral body at the apex of the acute angulation deformity. Impression: Non-infected; healing stage II decubitus ulcer over a chronic, acute angle kyphotic angulation of the thoracolumbar junction secondary to a chronic T12 vertebral body fracture. No evidence of spinal abscess by recent imaging. Procedure: Superficial subcutaneous tissue aspiration, 7cc of crimson, straw colored, non-purulent fluid drained with 10cc syringe and 20 gauge needle after sterile prep with betadine and alcohol. Recommendations: Continue decubitus ulcer wound care. If subcutaneous fluid pocket re-occurs, may need re- aspiration. Patient very poor surgical candidate; if he truly develops an discitis/osteomyelitis/epidural abscess of the spine or progressive neurological decline of lower extremity function; he would need to be transferred to a tertiary care center because of the extensive surgery he would need to undergo and his very high risk of serious post-operative complications. need transfer to Past Medical History Medical History: 1. Hypertension. 2. Anxiety disorder. 3. Alcohol abuse. 4. Tobacco abuse. 5. Obstructive sleep apnea. 6. Elbow infection, postoperative, chronic osteomyelitis. 7. Depression. 8. GERD. 9. Hypersensitivity pneumonitis secondary to daptomycin. 10. Right femur fracture status post surgery done 06/04/2018 at ( periprosthetic) Surgical History: 1. Recent elbow surgery on left elbow. 2. Sinus surgery. 3. Back surgery. 4. Squamous carcinoma the skin removal. 5. Total knee replacement. 6. PICC line right upper extremity Family History: Reviewed an Not Pertinent Past Social History: Smokes the 4 cigarettes a day, although currently not smoking on the swing bed, used to smoke more than pack a day until he fractured his elbow, also used to drink moderate amounts every day but he quit he said since he had the surgery on his elbow, no drug use. Tobacco Use: Former Smoker In the Past 12 Months, Have Used or Abuse Any of the Following Substance: None Alcohol Use: Heavy Medication / Allergies Home Medications: Home Medications 3 Medication Instructions Recorded Confirmed Type Aspirin 81 mg PO DAILY tab 12/13/16 06/10/18 History multivitamin with minerals tablet 1 tab PO QDAY tab 10/14/17 06/10/18 History omeprazole 40 mg capsule,delayed 40 mg PO DAILY #30 cap 05/13/18 06/10/18 Rx release tamsulosin 0.4 mg capsule 0.4 mg PO QHS #30 cap 05/13/18 06/10/18 Rx olanzapine 10 mg tablet 10 mg PO QDAY tab 05/22/18 06/10/18 History metoprolol tartrate 50 mg tablet 50 mg PO BID #60 tab 05/26/18 06/10/18 Rx Bacitracin Oint 14.2 gm tube 1 applic TOPICAL BID tube 07/22/18 Rx [Bacitracin Ointment 14.2 gm tube] Cephalexin [Keflex] 1,000 mg PO BID cap 07/22/18 Rx Clotrimazole Cream 1% [Lotrimin 1 applic TOPICAL BID tube 07/22/18 Rx Cream 1%] Docusate Sodium [Colace] 100 mg PO BID cap 07/22/18 Rx FLUoxetine HCl [PROzac] 20 mg PO DAILY cap 07/22/18 Rx Gabapentin [Neurontin] 600 mg PO BID cap 07/22/18 Rx HYDROcodone/APAP 7.5/325 Tab 1 - 2 tab PO Q4H PRN tab 07/22/18 Rx [[place] 7.5/325 Tab] Lidocaine Uro-Ject 2% [Xylocaine 10 ml TOPICAL ONCE PRN jelly 07/22/18 Rx Uro-Ject 2%] Nystatin Powder [Mycostatin Powder] 1 applic TOPICAL TID PRN bottle 07/22/18 Rx Oxybutynin Chloride ER [Ditropan 15 mg PO DAILY tab.er.24 07/22/18 Rx Xl] Tiotropium Inhalation Cap 18 mcg INH RTDAILY inhaler 07/22/18 Rx [Spiriva Inhalation Cap] Allergies/Adverse Reactions: Allergies 3 Allergy/AdvReac Type Severity Reaction Status Date / Time penicillin V Allergy Unknown NOT Verified 07/22/18 06:33 APPLICABLE Sulfa (Sulfonamide Allergy NOT Verified 07/22/18 06:33 Antibiotics) APPLICABLE Exam - Vitals Vital Signs: Vital Signs Temperature 98.5 F Temperature Source Temporal Artery Scan Pulse Rate [Pulse Oximeter] 70 Pulse Rate [Apical] 73 Respiratory Rate 20 Blood Pressure [Right Arm] 118/48 Pulse Ox 93 Oxygen Delivery Method Room Air Height 6 ft Weight 158 lb 4 oz
[2018-07-23] MEDS: ALBUTEROL SULFATE 8.5 GM HFA INHALER INH PRN ×2 (06:25→18:32)
[2018-07-23] MEDS: TIOTROPIUM BROMIDE 18 MCG CAPSULE INH SCH (06:26)
[2018-07-23] MEDS: HYDROcodone-APAP 7.5 MG-325 MG TABLET PO PRN ×4 (06:37→20:30)
[2018-07-23] MEDS: OMEPRAZOLE 40 MG CAPSULE PO SCH (06:37)
[2018-07-23] MEDS: CYCLOBENZAPRINE 10 MG TABLET PO PRN ×3 (06:37→18:07)
[2018-07-23] MEDS ORDERED: HYDROmorphone 2 MG/1 ML IVP ONE (08:20)
[2018-07-23 08:24] LABS: BASOPHILS # (AUTO) 0.05 10*3/UL; BASOPHILS % (AUTO) 0.6 % (0-1); EOSINOPHILS # (AUTO) 0.24 10*3/UL; EOSINOPHILS % (AUTO) 2.8 % (0-8); Hematocrit [HCT] 39.6 % (42.0-52.0); Hemoglobin [HGB] 13.4 g/dL (14.0-18.0); LYMPHOCYTES # (AUTO) 1.18 10*3/uL; MEAN CORPUSCULAR HEMOGLOBIN 31.1 PG (27-31); MEAN CORPUSCULAR HGB CONC 33.8 g/dL (33-37); MEAN CORPUSCULAR VOLUME 91.9 FL (80-90); MEAN PLATELET VOLUME 8.3 FL (7.4-12.2); MONOCYTES # (AUTO) 0.39 10*3/UL (0.3-0.8); MONOCYTES % (AUTO) 4.5 % (5-15); NEUTROPHILS # (AUTO) 6.81 10*3/UL; NEUTROPHILS % (AUTO) 78.4 % (50-80); RED BLOOD COUNT 4.31 10^6/uL (4.70-6.10)
[2018-07-23 08:25] LABS: PLATELET MORPHOLOGY COMMENT NORMAL MORPHOLOGY (NORM); RBC MORPHOLOGY COMMENT NORMAL MORPHOLOGY (NORM); WBC MORPHOLOGY COMMENT NORMAL MORPHOLOGY (NORM)
[2018-07-23] MEDS: OLANZapine Tab 5 MG TAB PO SCH (08:55)
[2018-07-23] MEDS: CEPHALEXIN 500 MG CAPSULE PO SCH ×2 (08:56→20:31)
[2018-07-23] MEDS: Oxybutynin ER Tab 5 MG TAB PO SCH (08:56)
[2018-07-23] MEDS: GABAPENTIN 300 MG CAPSULE PO SCH ×2 (08:56→20:29)
[2018-07-23] MEDS: FLUoxetine 20 MG CAPSULE PO SCH (08:57)
[2018-07-23] MEDS: ASPIRIN 81 MG (BABY) CHEWABLE TABLET PO SCH (08:57)
[2018-07-23] MEDS: Multivitamin Tab 1 TAB PO SCH (08:57)
[2018-07-23] MEDS: DOCUSATE 100 MG CAPSULE PO SCH ×2 (08:57→20:31)
[2018-07-23] MEDS: Metoprolol TARTRATE Tab 50 MG TAB PO SCH ×2 (08:57→20:31)
[2018-07-23] MEDS: Bacitracin Oint 14.2 gm tube 14 APPLIC/14.2 GM TUBE TOPICAL SCH ×2 (09:00→20:46)
[2018-07-23] MEDS: CLOTRIMAZOLE 28.35 GM CREAM TOPICAL SCH ×2 (09:00→20:46)
[2018-07-23 09:35] LABS: BLOOD UREA NITROGEN 9 mg/dL (7-22)
--- NOTE | 2018-07-23 19:17 | PDOC(PROG) ---
Date of Service: 07/23/18 Time of Service: 16:00 Interval History: no chest pain and no SOB. no nausea or vomiting. has back spasms from MRI yesterday. d/w neurosurgery regarding the decubitus ulcer and not showing signs of infection. no diskitis. if that occurs, patient would need transferred for surgery. patient is aware. thus far, no organisms. Objective : Data - Labs CBC and BMP: 07/23/18 08:17 07/23/18 08:17 Objective : Exam - General General Appearance: No Acute Distress, Cooperative Additional General Exam Details: Vital Signs - Last Taken Temperature 98.2 F 07/23/18 17:00 Pulse Rate 60 07/23/18 17:00 Respiratory Rate 20 07/23/18 17:00 Blood Pressure 124/76 07/23/18 17:00 Pulse Ox 90 07/23/18 17:00 - Eye Eye Exam: No Scleral Icterus - ENT ENT Exam: Mucous Membranes Moist - Respiratory Respiratory Exam: Clear to Auscultation - Bilaterally, Breathing Non Labored - Cardiovascular Cardiovascular Exam: RRR, No Murmur, No Clicks, No Gallops, No Rubs, No JVD - GI/Abdominal GI/Abdominal Exam: Normal Bowel Sounds, Non Tender, Non Distended, Soft - Extremities Extremities Exam: No Clubbing Present, No Edema Present, No Cyanosis Present - Back Additional Back Exam Details: thoracolumbar decubitus ulcer, stage II, examined with PT . they want to debride. I would be okay with enzymatic debridement. - Neurological Neurological Exam: Alert, Oriented x 3, No Facial Droop, Speech Intact / Clear Assessment and Plan - Patient Problems (1) Cellulitis of back Current Visit: Yes Status: Suspected Code(s): L03.312 - Cellulitis of back [ any part except buttock] (2) Decubitus ulcer Current Visit: Yes Status: Acute Code(s): L89.90 - Pressure ulcer of unspecified site, unspecified stage Qualifiers: Pressure injury location: lower back Pressure injury stage: stage 2 Laterality: left Qualified Code(s): L89.142 - Pressure ulcer of left lower back, stage 2 (3) Coronary artery disease Current Visit: Yes Status: Chronic Code(s): I25.10 - Atherosclerotic heart disease of [place] coronary artery without angina pectoris Qualifiers: Coronary Disease-Associated Artery/Lesion type: [place] artery [place] vs. transplanted heart: [place] heart Associated angina: without angina Qualified Code(s): I25.10 - Atherosclerotic heart disease of [place] coronary artery without angina pectoris (4) Right femoral fracture Current Visit: Yes Status: Chronic Code(s): S72.91XA - Unspecified fracture of right femur, initial encounter for closed fracture Qualifiers: Encounter type: subsequent encounter Femur location: unspecified portion of femur Fracture type: closed Fracture morphology: unspecified fracture morphology Fracture healing: with routine healing Qualified Code(s): S72.91XD - Unspecified fracture of right femur, subsequent encounter for closed fracture with routine healing (5) Depression Current Visit: Yes Status: Acute Code(s): F32.9 - Major depressive disorder , single episode, unspecified Qualifiers: Depression Type: other depression Qualified Code(s): F32.89 - Other specified depressive episodes (6) BPH (benign prostatic hyperplasia) Current Visit: Yes Status: Chronic Code(s): N40.0 - Benign prostatic hyperplasia without lower urinary tract symptoms Qualifiers: Lower urinary tract symptom presence: symptoms present Lower urinary tract symptom detail: unspecified Qualified Code(s): N40.1 - Benign prostatic hyperplasia with lower urinary tract symptoms (7) Osteomyelitis of left humerus Current Visit: No Status: Chronic Code(s): M86.9 - Osteomyelitis, unspecified Qualifiers: Osteomyelitis type: other chronic Qualified Code(s): M86.622 - Other chronic osteomyelitis, left humerus (8) Urinary retention Current Visit: No Status: Acute Onset Date: 12/13/16 Code(s): R33.9 - Retention of urine, unspecified (9) Essential hypertension Current Visit: No Status: Acute Onset Date: 12/13/16 Code(s): I10 - Essential (primary) hypertension - Assessment / Plan Additional Assessment/Plan Details: thus far, gram stain negative. no growth on culture. will have PT debridement with enzymatic therapy, continue wound therapy discuss with ID tomorrow; may need ortho re-eval for plates in elbow will call urology tomorrow in regard to suprapubic I am very uncomfortable discharging to swing until we have confirmed negative culture at 48 hours. check labs in AM
[2018-07-23] MEDS ORDERED: Iron Sucrose Inj 500 MG in Sodium Chloride 0.9% 250 ML IV ONE (19:24)
[2018-07-23] MEDS: TAMSULOSIN 0.4 MG CAPSULE PO SCH (20:31)
[2018-07-24] MEDS: ALBUTEROL SULFATE 8.5 GM HFA INHALER INH PRN ×2 (06:08→12:49)
[2018-07-24] MEDS: TIOTROPIUM BROMIDE 18 MCG CAPSULE INH SCH (06:09)
[2018-07-24] MEDS: OMEPRAZOLE 40 MG CAPSULE PO SCH (06:36)
[2018-07-24] MEDS: CYCLOBENZAPRINE 10 MG TABLET PO PRN ×2 (06:36→12:28)
[2018-07-24] MEDS: HYDROcodone-APAP 7.5 MG-325 MG TABLET PO PRN ×2 (06:36→12:28)
[2018-07-24 08:20] VITALS: TEMP 100.3
--- NOTE | 2018-07-24 08:52 | DI ---
MRI THORACIC SPINE SCAN WITHOUT AND WITH IV CONTRAST, 07/22/2018 1:13 PM: Clinical History: Thoracolumbar decubitus ulcer at a previous surgical site. Previous Exam: None. Comparison is made with a CT scan of the thoracic spine from 09/17/2017. Sequences: Pre and post contrast sagittal and axial T1; and axial, sagittal, and coronal T2 weighted scans. Fat saturated T1 weighted scans were not performed because of extensive artifacts generated by the metallic hardware. A vitamin E marker was placed over the skin surface where a wound apparently was identified. Contrast Dose: 15 mL of ProHance (279.3 mg/mL) The vertebral bodies from C1-T11 are of normal height with normal disc spaces through those levels. A nterior and posterior fusions in the lumbar spine have been performed up to T12-L1 and there is what presumably represents a fracture through the body of T12 with erosive changes are present between the superior and inferior fracture components. 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 The fusion between T12 and L1 is solid although the right s joycelyn of the inferior endplate of T12 and the bony fusion components have been eroded. The left inferio r facet of T12 and the superior facet of L1 show degenerative changes but are still intact. On the ri ght side, both components have completely been eroded and reabsorbed, thus producing both the gibbus deformity in the lateral projection and a right lateral tilt of the entire thoracic spine at this lev el. This overall appearance is similar to the previous CT scan. However on the prior CT exam the spac e between the 2 components was filled with gas and it is now filled with fluid raising the possibilit y that there is communication with the thecal sac. The cord probably terminates at T12. The area of the conus medullaris is compressed secondary to spinal canal stenosis as a result of the gibbus defor mity. The thoracic cord up to the level of the gibbus deformity at T12-L1 is normal. There are no extradura l lesions or intradural extramedullary or intradural intramedullary lesions. Severe spinal canal sten osis is present at the junction of the gibbus deformity involving the inferior endplate of T12 in the superior endplate of L1. Following contrast, there is no enhancement identified at the interface bet ween the fluid and bone but there is slight enhancement of the ligamentous structures anteriorly. The vertebral bodies all show a uniform change in appearance from the precontrast scans. No discrete ski n ulceration is identified where a vitamin E marker was placed and there is no evidence of a sinus tr act. Readin. There is an apparent chronic fracture through the body of T12. The inferior endplate of T12 is fu sed to L1. The superior fracture component shows asymmetric erosive change with complete erosion of t he T12-L1 apophyseal joint on the right side producing a right-sided lateral tilt of the thoracic spi ne with a gibbus deformity. The appearance is similar to the CT scans of the thoracic spine from 09/03. However, at the time of the CT scan, the space between the fragments of T12 was filled with g as. It now is filled with fluid similar to CSF signal intensity. Although no definite tract is visual ized, the possibility of a perforation in the dura cannot be excluded. There is no evidence to indica te this represents an abscess. 2. No discrete ulceration is seen on the skin surface, and there is no identifiable tract between th e skin and the deeper tissues. 3. The levels from T1-2 through T11-12 are normal.
[2018-07-24 09:13] LABS: BLOOD UREA NITROGEN 10 mg/dL (7-22)
[2018-07-24 09:23] LABS: BASOPHILS # (AUTO) 0.06 10*3/UL; BASOPHILS % (AUTO) 0.6 % (0-1); EOSINOPHILS # (AUTO) 0.19 10*3/UL; Hematocrit [HCT] 40.4 % (42.0-52.0); Hemoglobin [HGB] 13.5 g/dL (14.0-18.0); LYMPHOCYTES # (AUTO) 1.04 10*3/uL; MEAN CORPUSCULAR HEMOGLOBIN 30.9 PG (27-31); MEAN CORPUSCULAR HGB CONC 33.4 g/dL (33-37); MEAN CORPUSCULAR VOLUME 92.4 FL (80-90); MEAN PLATELET VOLUME 8.3 FL (7.4-12.2); MONOCYTES # (AUTO) 0.52 10*3/UL (0.3-0.8); MONOCYTES % (AUTO) 5.6 % (5-15); NEUTROPHILS # (AUTO) 7.46 10*3/UL; NEUTROPHILS % (AUTO) 80.4 % (50-80); RED BLOOD COUNT 4.37 10^6/uL (4.70-6.10)
--- NOTE | 2018-07-24 09:29 | OTI REPORT ---
Thank you for the referral of Shar Benedict. He was seen on 07/23/18 for an occupational therapy inpatient evaluation status post right hip fracture. SUBJECTIVE: The patient is a 68-year-old male. The patient was swingbed but had to move back to inpatient due to an MRI and some other complications. OT attempted to evaluate the patient this morning; however, he was in significant pain in his back from his MRI yesterday. The patient has been in and out of the hospital since February with multiple issues including initially a left elbow fracture followed by a staph infection in the left elbow. He has had complications with a bed sore that he got from being in and out of the hospital and ultimately a right femoral fracture. The patient continues to be non weight-bearing on the right lower extremity. He has been participating in therapy well and has made improvements and continues to benefit from skilled therapy at this time. The patient reports his pain is currently under control. He did receive a [place] and Dilaudid earlier today to help keep his pain under control. The patient had an MRI yesterday and they drained the wound on his back which has caused some significant pain. Overall the patient reports that he has improved and he wants to continue with strengthening and regaining his endurance as well as performing functional transfers so that he can return home. The patient lives in a trailer home. He does have steps to get inside. He has a tub/shower combo and he may need a tub transfer bench. At prior level of function the patient was able to ambulate within the home without difficulty. He does live alone but has family support in [place]. PAST MEDICAL HISTORY: Past medical history can be found in the patient's medical record. OBJECTIVE FINDINGS: Bed mobility: The patient was able to come from supine to sitting edge of bed independently. Transfer: The patient was able to perform transfers with verbal cues to follow his non weight-bearing precautions. He does tend to put his foot down at times ; however, he is supposed to be truly non weight-bearing at this time. Ambulation: The patient was able to ambulate a short distance with the use of a standard walker with a platform for his left elbow due to pain that he was having with functional mobility tasks. Activities of daily living: The patient is able to dress himself mostly independently or with modified independence. On occasion the patient requires minimal assistance to don socks. He is able to perform seated showering task with contact guard or stand by assistance with long handled shower hose. Balance: The patient does have limitations with dynamic standing balance. Range of motion: The patient's upper extremity range of motion on the right side is within functional limits for the shoulder, elbow, hand, and wrist. On the left he is limited in shoulder flexion/abduction to approximately 70 degrees due to a rotator cuff tear on that left side. Strength: Right upper extremity strength is 4/5 for the shoulder, elbow, hand, and wrist. Left upper extremity strength is 3+/5 for the shoulder, elbow, hand , and wrist. ASSESSMENT: Rehab potential is fair to good at this time secondary to diagnosis and based on his setbacks with therapy. Problem List: Wound on the patient's back which PT is monitoring and treating Increased pain Decreased functional mobility Decreased activity tolerance Decreased balance Decreased upper extremity strength Decreased upper extremity range of motion Decreased ability to perform functional tasks Decreased ability to perform ADLs Short-Term Goals: To be met by discharge from inpatient: Patient will increase bilateral upper extremity strength by one manual muscle grade. Patient will increase dynamic standing balance and activity tolerance to stand at the sink to complete standing grooming tasks or to complete a standing cooking task x20 minutes before requiring a rest break. Patient will increase bilateral upper extremity strength and activity tolerance to tolerate 40 minutes of continuous upper extremity strengthening activity tasks before requiring a rest break as well as performing stairs to enter his home and functional transfers using the walker. Patient will complete a tub/shower transfer with adaptive equipment as needed ( possibly a transfer bench) or being able to ambulate when his weight-bearing precautions have been lifted. Patient will complete upper and lower extremity dressing tasks independently. Long-Term Goals: To be met following discharge from inpatient: Patient will return home with adaptive equipment as needed and be able to function independently within his home. TREATMENT PLAN: Patient will be seen B.I.D during the week and one time per day over the weekend as an inpatient to address the above goals and objectives. INITIAL TREATMENT: Treatment today consisted of the initial evaluation followed by seated upper extremity strengthening with green theraband to include shoulder flexion, triceps extension, shoulder extension, biceps curls, three way bungees, shoulder retraction, shoulder shrugs, and horizontal abduction x10-20 each. MTDD
--- NOTE | 2018-07-24 09:44 | PTI REPORT ---
Thank you for the referral of Shar Benedict. He was seen on 07/23/18 for an inpatient evaluation for wound care and generalized weakness. SUBJECTIVE: The patient is a 68-year-old male. The patient reports that he lives by himself in a trailer at [facility]. The patient does have a [id number] who lives in town and can help out occasionally but she does work. The patient reports there are two stairs to get into his trailer with handrails. The patient came from [place] after he broke his femur on his right lower extremity. The patient reports he has had a left rotator cuff repair, he has had bilateral knee surgeries, and has had multiple ailments. The patient's goal is to go home. The patient continues to be non weight-bearing on the right side. The patient has also been dealing with a wound in his middle lower back. The patient did undergo an MRI yesterday to make sure that there is no tunneling from his wound. The patient states that Dr. Penaloza did remove approximately 7 ccs of fluid from around the wound. Over the last two weeks they have been dressing the wound with MediHoney and covering it with a Mepilex bandage but we have received further wound care orders for PT to take a closer look at the wound. PAST MEDICAL HISTORY: Past medical history can be found in the patient's medical record. OBJECTIVE FINDINGS: Pain: The patient states that his pain is better controlled this afternoon vs. this morning. His pain is primarily in his back where his wound is present. Wound: The therapist did have Maryann Saavedra PTA, who is a retail pos specialist come in during the evaluation to help inspect the wound. The surrounding tissue on the wound is red and slightly warm to the touch. There is a pocket of fluid to the left and inferior sides of the wound and this is primarily where the patient has most of his pain. The wound bed is 100% slough tissue with rounded wound edges. We did bring Dr. Aguilera in as well during the wound inspection and discussed trying an enzymatic debridement product over the wound bed in order to help get rid of the non-viable tissue as the wound has not changed much over the last two weeks and continues to have moderate drainage and no granulation tissue present in the wound bed at this time. Dr. Aguilera did agree to enzymatic debridement and we will look into ordering a product specific for the patient to address the wound in the manner. We will continue to provide wound care for physical therapy. Transfers: The patient is able to transfer with stand by assist x1 for safety. Ambulation: The patient continues to be non weight-bearing and does have a difficult time with ambulating short distances. He requires max cues to maintain non weight-bearing as he does attempt to demonstrate toe touch weight- bearing. He still has the IROM in place as well. ASSESSMENT: The patient is a 68-year-old male with a right femur fracture and is non weight- bearing. The patient's prognosis is fair. Problem List: Decreased strength Decreased functional mobility Decreased endurance Short-Term Goals: To be met by discharge from inpatient: Patient will be able to be independent with all transfers Patient will be able to ambulate 50 feet with walker to improve functional mobility. Patient will be able to tolerate 15 minutes of activity. Patient wound will demo 50% wound closure. Patient will keep the wound clean and dry. PT will dress the wound per wound presentation. Long-Term Goals: To be met following discharge from inpatient: Patient will be able to return home independently with least restrictive AD. Patient will demonstrate full wound closure. TREATMENT PLAN: Patient will be seen B.I.D during the week and one time per day over the weekend as an inpatient to address the above goals and objectives. INITIAL TREATMENT: Treatment today consisted of the re-evaluation as the patient has returned to inpatient status along with a dressing change and inspection of the wound and collaboration with doctor in order to determine wound care that will be provided. At this time the wound was dressed with Mepilex bandage until we can get an enzymatic debridement product. [facility]
[2018-07-24] MEDS: GABAPENTIN 300 MG CAPSULE PO SCH (09:50)
[2018-07-24] MEDS: CEPHALEXIN 500 MG CAPSULE PO SCH (09:50)
[2018-07-24] MEDS: Multivitamin Tab 1 TAB PO SCH (09:50)
[2018-07-24] MEDS: Oxybutynin ER Tab 5 MG TAB PO SCH (09:50)
[2018-07-24] MEDS: OLANZapine Tab 5 MG TAB PO SCH (09:50)
[2018-07-24] MEDS: Bacitracin Oint 14.2 gm tube 14 APPLIC/14.2 GM TUBE TOPICAL SCH (09:51)
[2018-07-24] MEDS: Metoprolol TARTRATE Tab 50 MG TAB PO SCH (09:51)
[2018-07-24] MEDS: DOCUSATE 100 MG CAPSULE PO SCH (09:51)
[2018-07-24] MEDS: FLUoxetine 20 MG CAPSULE PO SCH (09:51)
[2018-07-24] MEDS: ASPIRIN 81 MG (BABY) CHEWABLE TABLET PO SCH (09:51)
[2018-07-24] MEDS: CLOTRIMAZOLE 28.35 GM CREAM TOPICAL SCH (09:52)
[2018-07-24 09:57] LABS: PLATELET MORPHOLOGY COMMENT NORMAL MORPHOLOGY (NORM); RBC MORPHOLOGY COMMENT NORMAL MORPHOLOGY (NORM); WBC MORPHOLOGY COMMENT NORMAL MORPHOLOGY (NORM)
--- NOTE | 2018-07-24 10:13 | OT.PROG ---
Progress Note Progress Note: S: pt stated that he was feeling much better today than he was yesterday. O: tx consisted of functional ambulation x 15', UE RTB exercises with green TB in all planes of motion x 15 each. A: pt has been having issues with muscle cramping while completing therapies. pts R hip flexors started to cramp and spasm causing him pain and tx session was ended. het pack from nurses station was applied to pts R hip after returning to room. pt reported some decrease in pain with heat pack. P: continue POC
[2018-07-24 11:51] VITALS: BP 151/83; RESP 18; O2SAT 96
--- NOTE | 2018-07-24 14:19 | PDOC(PROG) ---
Date of Service: 07/24/18 Time of Service: 14:16 Interval History: The patient is just irritated and frustrated about his medical condition. No chest pain, no shortness of breath. States his ulcer hurts, but no evidence of infection and cultures are negative at 2 days. Had temperature but states that they took his temperature in the setting of drinking coffee. Objective : Data - Labs CBC and BMP: 07/24/18 08:59 07/24/18 08:59 Additional Lab Results: 07/24/18 08:59 Vitamin D 25-Hydroxy 49.2 Objective : Exam - General General Appearance: No Acute Distress, Cooperative Additional General Exam Details: Vital Signs - Last Taken Temperature 100.3 F H 07/24/18 08:18 Pulse Rate 67 07/24/18 11:49 Respiratory Rate 18 07/24/18 11:49 Blood Pressure 151/83 07/24/18 11:49 Pulse Ox 96 07/24/18 11:49 - Eye Eye Exam: No Scleral Icterus - ENT ENT Exam: Mucous Membranes Moist - Respiratory Respiratory Exam: Clear to Auscultation - Bilaterally, Breathing Non Labored Assessment and Plan - Patient Problems (1) Cellulitis of back Current Visit: Yes Status: Suspected Code(s): L03.312 - Cellulitis of back [ any part except buttock] (2) Decubitus ulcer Current Visit: Yes Status: Acute Code(s): L89.90 - Pressure ulcer of unspecified site, unspecified stage Qualifiers: Pressure injury location: lower back Pressure injury stage: stage 2 Laterality: left Qualified Code(s): L89.142 - Pressure ulcer of left lower back, stage 2 (3) Coronary artery disease Current Visit: Yes Status: Chronic Code(s): I25.10 - Atherosclerotic heart disease of [place] coronary artery without angina pectoris Qualifiers: Coronary Disease-Associated Artery/Lesion type: [place] artery [place] vs. transplanted heart: [place] heart Associated angina: without angina Qualified Code(s): I25.10 - Atherosclerotic heart disease of [place] coronary artery without angina pectoris (4) Right femoral fracture Current Visit: Yes Status: Chronic Code(s): S72.91XA - Unspecified fracture of right femur, initial encounter for closed fracture Qualifiers: Encounter type: subsequent encounter Femur location: unspecified portion of femur Fracture type: closed Fracture morphology: unspecified fracture morphology Fracture healing: with routine healing Qualified Code(s): S72.91XD - Unspecified fracture of right femur, subsequent encounter for closed fracture with routine healing (5) Depression Current Visit: Yes Status: Acute Code(s): F32.9 - Major depressive disorder , single episode, unspecified Qualifiers: Depression Type: other depression Qualified Code(s): F32.89 - Other specified depressive episodes (6) BPH (benign prostatic hyperplasia) Current Visit: Yes Status: Chronic Code(s): N40.0 - Benign prostatic hyperplasia without lower urinary tract symptoms Qualifiers: Lower urinary tract symptom presence: symptoms present Lower urinary tract symptom detail: unspecified Qualified Code(s): N40.1 - Benign prostatic hyperplasia with lower urinary tract symptoms (7) Osteomyelitis of left humerus Current Visit: No Status: Chronic Code(s): M86.9 - Osteomyelitis, unspecified Qualifiers: Osteomyelitis type: other chronic Qualified Code(s): M86.622 - Other chronic osteomyelitis, left humerus (8) Urinary retention Current Visit: No Status: Acute Onset Date: 12/13/16 Code(s): R33.9 - Retention of urine, unspecified (9) Essential hypertension Current Visit: No Status: Acute Onset Date: 12/13/16 Code(s): I10 - Essential (primary) hypertension
--- NOTE | 2018-07-24 14:36 | DCSUMMARY ---
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 He recently had some concerns that he might of had an infected decubitus ulcer. A neurosurgical consultation was obtained. We had to admit the patient doesn't inpatient to get MRI studies, aspiration studies and look at culture results. The cultures came out negative and MRI scans were negative for any sort of abscess. Neurosurgery felt that if this did become infected or discitis occurred, the patient would be best served to be at a tertiary care center for any potential surgical needs due to the complexity of the surgery is needed to heal this. I spoke with physical therapy who is managing wound care on this decubitus ulcer and they felt that enzymatic debridement may be necessary to help this heal. As we now know that this is not infected, and we have negative cultures, I did note that the temperatures 100.3 today but the patient states to me that they check his temperature in the setting of drinking coffee and I suspect that this is a false reading. He has no symptoms at all of infection prior to these new infection that is) and so I think he is stable for discharge back to the swing bed. He denies any chest pain, denies shortness breath, denies nausea and vomiting but complains that his had some increased pain since the MRI scan with increased muscle spasm. Assessment and Plan: 1. As per discharge assessments noted 2. Disposition: Patient is discharged to the swing bed 3. Condition on discharge, stable and improved. 4. Diet: regular diet 5. Activities: We will continue PT and OT 6. Follow-Up: 1. The hospital service will continue to manage the patient on swing bed 2. Patient has follow-up with Dr. Judd regarding the femur on 2017. I spoke to Dr. Cloud today regarding the patient's elbow and he suggested to me that he would do x-rays on 08/20/2018 when the patient is in the clinic but that he would recommend the patient remained plated on the left elbow for upwards of at least 9 more months. 3. Infectious disease follow-up 4. I called the urology office to speak with Dr. Bacon today, and we will continue to try and arrange for suprapubic catheter. We faxed urine culture results up today. 7. Medications at the Time of Discharge: Active Medications Generic Name Dose Route Start Last Admin Trade Name Freq PRN Reason Stop Dose Admin Hydrocodone Bitart/Acetaminophen 1 - 2 tab 07/22/18 13:11 07/24/18 12:28 [place] 7.5/325 Tab PO 2 tab Q4H PRN Administration Pain Albuterol Sulfate 2 puff 07/22/18 13:14 07/24/18 12:49 Proair Hfa Inhaler INH 2 puff RTQ6H PRN Administration SOB, wheeze Aspirin 81 mg 07/23/18 09:00 07/24/18 09:51 Aspirin Chewable Tab PO 81 mg DAILY FARIBA Administration Bacitracin 1 applic 07/22/18 21:00 07/24/18 09:51 Bacitracin Ointment 14.2 Gm Tube TOPICAL 1 applic BID FARIBA Administration Calcium Carbonate 1 - 2 tab 07/22/18 13:09 Tums PO Q6H PRN Heartburn Cephalexin 1,000 mg 07/22/18 21:00 07/24/18 09:50 Keflex PO 1,000 mg BID FARIBA Administration Clotrimazole 1 applic 07/22/18 21:00 07/24/18 09:52 Lotrimin Cream 1% TOPICAL 1 applic BID FARIBA Administration Cyclobenzaprine HCl 5 mg 07/22/18 17:22 07/24/18 12:28 Flexeril PO 5 mg TID PRN Administration Spasms Docusate Sodium 100 mg 07/22/18 21:00 07/24/18 09:51 Colace PO 100 mg BID FARIBA Administration Fluoxetine HCl 20 mg 07/23/18 09:00 07/24/18 09:51 Prozac PO 20 mg DAILY FARIBA Administration Gabapentin 600 mg 07/22/18 21:00 07/24/18 09:50 Neurontin PO 600 mg BID FARIBA Administration Lidocaine HCl 10 ml 07/22/18 13:11 Xylocaine Uro-Ject 2% TOPICAL ONCE PRN Discomfort catheter insertion Lidocaine HCl 0.5 ml 07/22/18 13:09 Lidocaine Buffered Inj SUBD ONCE PRN IV Starts Metoprolol Tartrate 50 mg 07/22/18 21:00 07/24/18 09:51 Lopressor Tab PO 50 mg BID FARIBA Administration Multivitamins Therapeutic 1 tab 07/23/18 09:00 07/24/18 09:50 Thera Tab PO 1 tab DAILY FARIBA Administration Nystatin 1 applic 07/22/18 13:11 Mycostatin Powder TOPICAL TID PRN Itching Olanzapine 10 mg 07/23/18 09:00 07/24/18 09:50 Zyprexa Tab PO 10 mg DAILY FARIBA Administration Omeprazole 40 mg 07/23/18 07:00 07/24/18 06:36 Prilosec PO 40 mg AC BK FARIBA Administration Oxybutynin Chloride 15 mg 07/23/18 09:00 07/24/18 09:50 Ditropan Xl PO 15 mg DAILY FARIBA Administration Tamsulosin HCl 0.4 mg 07/22/18 21:00 07/23/18 20:31 Flomax PO 0.4 mg BEDTIME FARIBA Administration Tiotropium [place] 18 mcg 07/23/18 07:00 07/24/18 06:09 Spiriva Inhalation Cap INH 18 mcg RTDAILY FARIBA Administration 8. Time, care, counseling and coordination of care for this discharge is greater than 30 minutes. Exam - Vitals Vital Signs: Vital Signs Temperature 100.3 F Temperature Source Oral Pulse Rate [Pulse Oximeter] 67 Pulse Rate [Apical] 73 Respiratory Rate 18 Blood Pressure [Right Arm] 151/83 Pulse Ox 96 Oxygen Delivery Method Room Air Height 6 ft Weight 158 lb 4 oz - General General Appearance: No Acute Distress, Cooperative - Head Head Exam: Normal Inspection, Normocephalic, Atraumatic - Eye Eye Exam: POSITIVE: No Scleral Icterus - ENT ENT Exam: POSITIVE: Mucous Membranes Moist - Respiratory Respiratory Exam: POSITIVE: Clear to Auscultation - Bilaterally, Breathing Non Labored - Cardiovascular Cardiovascular Exam: POSITIVE: RRR, No Murmur, No Clicks, No Gallops, No Rubs, No JVD - GI/Abdominal GI/Abdominal Exam: POSITIVE: Normal Bowel Sounds, Non Tender, Non Distended, Soft - Extremities Extremities Exam: POSITIVE: No Clubbing Present, No Edema Present, No Cyanosis Present - Neurological Neurological Exam: POSITIVE: Alert, Oriented x 3, No Facial Droop, Speech Intact / Clear, Moves All Extremities Equally - Psychiatric Psychiatric Exam: POSITIVE: Agitated Data Peritnent Studies: 07/24/18 07/24/18 07/24/18 08:59 08:59 08:59 WBC 9.29 Hgb 13.5 L Hct 40.4 L Plt Count 323 Neut % (Auto) 80.4 H Sodium 133 L Potassium 4.6 Chloride 100 Carbon Dioxide 27 Anion Gap 6 BUN 10 Creatinine 0.8 Estimated GFR > 60 BUN/Creatinine Ratio 12.50 Glucose 97 Calculated Osmolality 274.0 Calcium 9.2 Vitamin D 25-Hydroxy 49.2 Patient Problems - Patient Problem List (1) Decubitus ulcer Current Visit: Yes Status: Acute Code(s): L89.90 - Pressure ulcer of unspecified site, unspecified stage Qualifiers: Pressure injury location: lower back Pressure injury stage: stage 2 Laterality: left Qualified Code(s): L89.142 - Pressure ulcer of left lower back, stage 2 Category: Medical (2) Cellulitis of back Current Visit: Yes Status: Ruled-out Code(s): L03.312 - Cellulitis of back [ any part except buttock] Category: Medical (3) Coronary artery disease Current Visit: Yes Status: Chronic Code(s): I25.10 - Atherosclerotic heart disease of [place] coronary artery without angina pectoris Qualifiers: Coronary Disease-Associated Artery/Lesion type: [place] artery [place] vs. transplanted heart: [place] heart Associated angina: without angina Qualified Code(s): I25.10 - Atherosclerotic heart disease of [place] coronary artery without angina pectoris Category: Medical (4) Right femoral fracture Current Visit: Yes Status: Chronic Code(s): S72.91XA - Unspecified fracture of right femur, initial encounter for closed fracture Qualifiers: Encounter type: subsequent encounter Femur location: unspecified portion of femur Fracture type: closed Fracture morphology: unspecified fracture morphology Fracture healing: with routine healing Qualified Code(s): S72.91XD - Unspecified fracture of right femur, subsequent encounter for closed fracture with routine healing Category: Medical (5) Depression Current Visit: Yes Status: Acute Code(s): F32.9 - Major depressive disorder , single episode, unspecified Qualifiers: Depression Type: other depression Qualified Code(s): F32.89 - Other specified depressive episodes Category: Medical (6) BPH (benign prostatic hyperplasia) Current Visit: Yes Status: Chronic Code(s): N40.0 - Benign prostatic hyperplasia without lower urinary tract symptoms Qualifiers: Lower urinary tract symptom presence: symptoms present Lower urinary tract symptom detail: unspecified Qualified Code(s): N40.1 - Benign prostatic hyperplasia with lower urinary tract symptoms Category: Medical (7) Osteomyelitis of left humerus Current Visit: No Status: Chronic Code(s): M86.9 - Osteomyelitis, unspecified Qualifiers: Osteomyelitis type: other chronic Qualified Code(s): M86.622 - Other chronic osteomyelitis, left humerus Category: Medical (8) Urinary retention Current Visit: No Status: Acute Onset Date: 12/13/16 Code(s): R33.9 - Retention of urine, unspecified Category: Medical (9) Essential hypertension Current Visit: No Status: Acute Onset Date: 12/13/16 Code(s): I10 - Essential (primary) hypertension Category: Medical
--- NOTE | 2018-07-24 16:24 | PT.PROG ---
Progress Note Progress Note: S: Pt. states he is doing ok today. States his back is sore. O: Treatment consisted of wound care: wound has established a tunnel from underneath the wound surface with moderate amounts of drainage noted on the dressing as well as his shirt. Wound edges were compressed and more serous drainage was noted. wound was then packed with iodoform to allow for wicking, covered with xtrasorb hydrogel and covaderm. A: Wound edges due appear lessened from drainage. Wound does have a tunnel noted at 9 oclock measuring 4.5 cm. No other tunnels identified at this time. Wound bed itself is 100% slough tissue. No odor present. P: Continue per POC to increase strength and activity tolerance. Maryann Saavedra, TOP PRECIPITATOR OPERATOR HELPER
--- NOTE | 2018-07-24 19:58 | DI ---
MRI LUMBAR SPINE SCAN WITHOUT AND WITH IV CONTRAST, 07/22/2018 1:13 PM: Clinical History: Thoracolumbar decubitus ulcer as a previous surgical site. Previous Exam: None. Sequences: Sagittal T1 and T2-weighted and STIR scans; axial and sagittal postcontrast T1-weighted sc ans. Fat-saturated T1-weighted sequences were not performed because of extensive metallic artifacts. Contrast Dose: This is the same dose used for the pre-and postcontrast MRI scans of the thoracic spin e. The changes at T12-L1 have been described on the MRI scans of the thoracic spine from the same date. The patient is status post anterior and posterior fusions at T12-L1 through L5-S1. The patient has be en fused at L5-S1 but the metallic hardware has been removed. Laminectomies have been performed from L1-S1. There is no canal stenosis or neural foraminal stenosis from L1-2 through L5-S1. No abnormally enhancing areas are seen in the lumbar spine. Readin. See the report on the thoracic spine her the T12-L1 levels. 2. Status post anterior and posterior fusions between T12-L1 through L4-5 and status post anterior f usion at L5-S1. The metallic hardware previously present at S1 has been removed. 3. There is no canal or neural foraminal stenosis between L1-2 through L5-S1. Laminectomies have bee n performed from L1-S1.
== END 2018-07-24 14:43 | disposition swing bed (61) | DRG 592 ==
LOC: MED/SURG 13:09
PROVIDERS: ADMIT Family Medicine; ATTEND Family Medicine

== ENCOUNTER 2019-10-22 10:57 | Inpatient (IN) ==
[2019-10-22] MEDS ORDERED: IPRATROPIUM/ALBUTEROL SULFATE 3 ML NEB NEB ONE (11:15)
[2019-10-22] MEDS ORDERED: methylPREDNISolone 125 MG/2 ML VIAL IVP ONE (11:15)
[2019-10-22 11:36] LABS: BLOOD UREA NITROGEN 14 mg/dL (7-22)
[2019-10-22 11:51] LABS: BASOPHILS # (AUTO) 0.02 10*3/UL; BASOPHILS % (AUTO) 0.5 % (0-1); EOSINOPHILS # (AUTO) 0.05 10*3/UL; EOSINOPHILS % (AUTO) 1.2 % (0-8); Hematocrit [HCT] 40.4 % (42.0-52.0); Hemoglobin [HGB] 14.2 g/dL (14.0-18.0); LYMPHOCYTES # (AUTO) 0.44 10*3/uL; MEAN CORPUSCULAR HGB CONC 35.1 g/dL (33-37); MEAN CORPUSCULAR VOLUME 102.3 FL (80-90); MEAN PLATELET VOLUME 9.2 FL (7.4-12.2); MONOCYTES # (AUTO) 0.44 10*3/UL (0.3-0.8); MONOCYTES % (AUTO) 10.4 % (5-15); NEUTROPHILS # (AUTO) 3.29 10*3/UL; NEUTROPHILS % (AUTO) 77.3 % (50-80); RED BLOOD COUNT 3.95 10^6/uL (4.70-6.10)
[2019-10-22 11:52] LABS: PLATELET MORPHOLOGY COMMENT NORMAL MORPHOLOGY (NORM); RBC MORPHOLOGY COMMENT NORMAL MORPHOLOGY (NORM); WBC MORPHOLOGY COMMENT NORMAL MORPHOLOGY (NORM)
[2019-10-22] MEDS ORDERED: cefTRIAXone Inj 1 GM in Sodium Chloride 0.9% 100 ML IV ONE (12:36)
[2019-10-22] MEDS ORDERED: OSELTAMIVIR PHOSPHATE 75 MG CAPSULE PO ONE (12:46)
[2019-10-22] MEDS ORDERED: LIDOCAINE W/ SODIUM BICARB 0.5 ML SYR SUBD PRN (15:00)
[2019-10-22] MEDS ORDERED: tiZANidine Tab 4 MG TAB PO PRN (15:07)
[2019-10-22] MEDS ORDERED: MAG HYDROX/AL HYDROX/SIMETH 30 ML SUSP PO PRN (15:07)
[2019-10-22] MEDS ORDERED: LEVALBUTEROL HCL 1.25 MG/3 ML NEB PRN (15:16)
[2019-10-22] MEDS ORDERED: ACIDOPHILUS/BULGARICUS CHEWABLE TABLET PO SCH (15:45)
[2019-10-22] MEDS: Lactated Ringers 1,000 ML PRIMARY IV SCH (16:25)
[2019-10-22] MEDS: HYDROcodone-APAP 7.5 MG-325 MG TABLET PO PRN (17:01)
[2019-10-22] MEDS: IBUPROFEN 400 MG TABLET PO PRN (17:56)
[2019-10-22] MEDS: methylPREDNISolone 40 MG/1 ML VIAL IVP SCH (17:57)
[2019-10-22] MEDS: LEVALBUTEROL HCL 1.25 MG/3 ML NEB SCH (19:05)
[2019-10-22] MEDS: traZODone Tab 50 MG TAB PO SCH (20:55)
[2019-10-22] MEDS: ACIDOPHILUS/BULGARICUS CHEWABLE TABLET PO SCH (20:55)
[2019-10-22] MEDS: OSELTAMIVIR PHOSPHATE 75 MG CAPSULE PO SCH (20:55)
[2019-10-22] MEDS: OLANZapine Tab 5 MG TAB PO SCH (20:55)
[2019-10-22] MEDS: CEPHALEXIN 500 MG CAPSULE PO SCH (20:55)
[2019-10-22] MEDS: Metoprolol TARTRATE Tab 50 MG TAB PO SCH (20:55)
[2019-10-22] MEDS: GABAPENTIN 300 MG CAPSULE PO SCH (21:01)
[2019-10-23] MEDS: methylPREDNISolone 40 MG/1 ML VIAL IVP SCH ×4 (00:23→17:32)
[2019-10-23] MEDS: Lactated Ringers 1,000 ML PRIMARY IV SCH (00:23)
[2019-10-23] MEDS: LEVALBUTEROL HCL 1.25 MG/3 ML NEB SCH ×4 (01:07→19:26)
[2019-10-23 04:34] LABS: BASOPHILS # (AUTO) 0.01 10*3/UL; BASOPHILS % (AUTO) 0.2 % (0-1); EOSINOPHILS # (AUTO) 0 10*3/UL; EOSINOPHILS % (AUTO) 0 % (0-8); Hematocrit [HCT] 37.3 % (42.0-52.0); Hemoglobin [HGB] 13.4 g/dL (14.0-18.0); LYMPHOCYTES # (AUTO) 0.28 10*3/uL; MEAN CORPUSCULAR HGB CONC 35.9 g/dL (33-37); MEAN CORPUSCULAR VOLUME 101.4 FL (80-90); MONOCYTES % (AUTO) 2.2 % (5-15); NEUTROPHILS # (AUTO) 4.23 10*3/UL; NEUTROPHILS % (AUTO) 91.4 % (50-80); RED BLOOD COUNT 3.68 10^6/uL (4.70-6.10)
[2019-10-23 04:38] LABS: PLATELET MORPHOLOGY COMMENT NORMAL MORPHOLOGY (NORM); RBC MORPHOLOGY COMMENT NORMAL MORPHOLOGY (NORM); WBC MORPHOLOGY COMMENT NORMAL MORPHOLOGY (NORM)
[2019-10-23 04:57] LABS: BLOOD UREA NITROGEN 9 mg/dL (7-22); SERUM ALBUMIN 3.5 g/dL (3.5-4.8)
[2019-10-23] MEDS: HYDROcodone-APAP 7.5 MG-325 MG TABLET PO PRN ×2 (06:02→15:22)
[2019-10-23] MEDS: ACIDOPHILUS/BULGARICUS CHEWABLE TABLET PO SCH ×2 (09:00→20:06)
[2019-10-23] MEDS: ENOXAPARIN SODIUM 40 MG/0.4 ML SYRINGE SUBCUT SCH (09:00)
[2019-10-23] MEDS: CEPHALEXIN 500 MG CAPSULE PO SCH ×3 (09:01→20:05)
[2019-10-23] MEDS: FLUoxetine 20 MG CAPSULE PO SCH (09:01)
[2019-10-23] MEDS: GABAPENTIN 300 MG CAPSULE PO SCH ×2 (09:01→20:04)
[2019-10-23] MEDS: Thiamine Tab 100 MG TAB PO SCH (09:02)
[2019-10-23] MEDS: Multivitamin Tab 1 TAB PO SCH (09:02)
[2019-10-23] MEDS: Metoprolol TARTRATE Tab 50 MG TAB PO SCH ×2 (09:03→20:05)
[2019-10-23] MEDS: FOLIC ACID 1 MG TABLET PO SCH (09:03)
[2019-10-23] MEDS: AmLODIPine Tab 5 MG TABLET PO SCH (09:04)
[2019-10-23] MEDS: PANTOPRAZOLE 40 MG TABLET PO SCH (09:04)
[2019-10-23] MEDS: ASPIRIN EC 81 MG TABLET PO SCH (09:04)
[2019-10-23] MEDS: OSELTAMIVIR PHOSPHATE 75 MG CAPSULE PO SCH ×2 (09:05→20:06)
[2019-10-23] MEDS: cefTRIAXone Inj 2 GM in Sodium Chloride 0.9% 100 ML IV SCH (12:15)
[2019-10-23] MEDS: OLANZapine Tab 5 MG TAB PO SCH (20:04)
[2019-10-23] MEDS: traZODone Tab 50 MG TAB PO SCH (20:05)
[2019-10-23] MEDS: IBUPROFEN 400 MG TABLET PO PRN (20:05)
[2019-10-24] MEDS: LEVALBUTEROL HCL 1.25 MG/3 ML NEB SCH ×2 (00:29→06:47)
[2019-10-24] MEDS: methylPREDNISolone 125 MG/2 ML VIAL IVP SCH ×5 (00:38→23:51)
[2019-10-24] MEDS ORDERED: TIOTROPIUM BROMIDE 18 MCG CAPSULE INH SCH (07:00)
[2019-10-24] MEDS: HYDROcodone-APAP 7.5 MG-325 MG TABLET PO PRN ×3 (07:08→21:04)
[2019-10-24] MEDS ORDERED: ALBUTEROL SULFATE 2.5 MG/3 ML NEB PRN (07:50)
[2019-10-24 07:55] LABS: BASOPHILS # (AUTO) 0.01 10*3/UL; BASOPHILS % (AUTO) 0.1 % (0-1); EOSINOPHILS # (AUTO) 0 10*3/UL; EOSINOPHILS % (AUTO) 0 % (0-8); Hematocrit [HCT] 40.3 % (42.0-52.0); Hemoglobin [HGB] 13.9 g/dL (14.0-18.0); LYMPHOCYTES # (AUTO) 0.45 10*3/uL; MEAN CORPUSCULAR HGB CONC 34.5 g/dL (33-37); MEAN CORPUSCULAR VOLUME 104.1 FL (80-90); MONOCYTES # (AUTO) 0.22 10*3/UL (0.3-0.8); MONOCYTES % (AUTO) 2.1 % (5-15); NEUTROPHILS # (AUTO) 9.85 10*3/UL; NEUTROPHILS % (AUTO) 92.8 % (50-80); RED BLOOD COUNT 3.87 10^6/uL (4.70-6.10)
[2019-10-24 07:56] LABS: PLATELET MORPHOLOGY COMMENT NORMAL MORPHOLOGY (NORM); RBC MORPHOLOGY COMMENT NORMAL MORPHOLOGY (NORM); WBC MORPHOLOGY COMMENT NORMAL MORPHOLOGY (NORM)
[2019-10-24 08:05] LABS: VENOUS PH 7.42 (7.32-7.42)
[2019-10-24 08:11] LABS: BLOOD UREA NITROGEN 11 mg/dL (7-22); SERUM ALBUMIN 3.7 g/dL (3.5-4.8)
[2019-10-24] MEDS: OSELTAMIVIR PHOSPHATE 75 MG CAPSULE PO SCH ×2 (08:32→20:57)
[2019-10-24] MEDS: Thiamine Tab 100 MG TAB PO SCH (08:32)
[2019-10-24] MEDS: GABAPENTIN 300 MG CAPSULE PO SCH ×2 (08:32→20:57)
[2019-10-24] MEDS: FLUoxetine 20 MG CAPSULE PO SCH (08:32)
[2019-10-24] MEDS: CEPHALEXIN 500 MG CAPSULE PO SCH ×3 (08:32→20:57)
[2019-10-24] MEDS: ACIDOPHILUS/BULGARICUS CHEWABLE TABLET PO SCH ×2 (08:32→20:57)
[2019-10-24] MEDS: Multivitamin Tab 1 TAB PO SCH (08:33)
[2019-10-24] MEDS: ASPIRIN EC 81 MG TABLET PO SCH (08:33)
[2019-10-24] MEDS: FOLIC ACID 1 MG TABLET PO SCH (08:33)
[2019-10-24] MEDS: AmLODIPine Tab 5 MG TABLET PO SCH (08:33)
[2019-10-24] MEDS: Metoprolol TARTRATE Tab 50 MG TAB PO SCH ×2 (08:33→20:57)
[2019-10-24] MEDS: PANTOPRAZOLE 40 MG TABLET PO SCH (08:33)
[2019-10-24] MEDS: ENOXAPARIN SODIUM 40 MG/0.4 ML SYRINGE SUBCUT SCH (08:38)
[2019-10-24] MEDS: IPRATROPIUM/ALBUTEROL SULFATE 3 ML NEB NEB SCH ×3 (10:01→19:10)
[2019-10-24] MEDS ORDERED: methylPREDNISolone 125 MG/2 ML VIAL IVP SCH (12:00)
[2019-10-24] MEDS: cefTRIAXone Inj 2 GM in Sodium Chloride 0.9% 100 ML IV SCH (12:39)
[2019-10-24] MEDS: OLANZapine Tab 5 MG TAB PO SCH (20:57)
[2019-10-24] MEDS: traZODone Tab 50 MG TAB PO SCH (20:57)
[2019-10-24] MEDS: IBUPROFEN 400 MG TABLET PO PRN (21:04)
[2019-10-25] MEDS: methylPREDNISolone 125 MG/2 ML VIAL IVP SCH ×4 (05:09→23:58)
[2019-10-25] MEDS: HYDROcodone-APAP 7.5 MG-325 MG TABLET PO PRN ×2 (05:09→23:58)
[2019-10-25] MEDS: IPRATROPIUM/ALBUTEROL SULFATE 3 ML NEB NEB SCH ×4 (06:45→18:51)
[2019-10-25] MEDS: GABAPENTIN 300 MG CAPSULE PO SCH ×2 (10:06→21:16)
[2019-10-25] MEDS: FOLIC ACID 1 MG TABLET PO SCH (10:06)
[2019-10-25] MEDS: FLUoxetine 20 MG CAPSULE PO SCH (10:07)
[2019-10-25] MEDS: Multivitamin Tab 1 TAB PO SCH (10:07)
[2019-10-25] MEDS: OSELTAMIVIR PHOSPHATE 75 MG CAPSULE PO SCH ×2 (10:07→21:15)
[2019-10-25] MEDS: PANTOPRAZOLE 40 MG TABLET PO SCH (10:08)
[2019-10-25] MEDS: Thiamine Tab 100 MG TAB PO SCH (10:08)
[2019-10-25] MEDS: CEPHALEXIN 500 MG CAPSULE PO SCH ×3 (10:08→21:15)
[2019-10-25] MEDS: ASPIRIN EC 81 MG TABLET PO SCH (10:08)
[2019-10-25] MEDS: ENOXAPARIN SODIUM 40 MG/0.4 ML SYRINGE SUBCUT SCH (10:09)
[2019-10-25] MEDS: ACIDOPHILUS/BULGARICUS CHEWABLE TABLET PO SCH ×2 (10:09→21:16)
[2019-10-25] MEDS: AmLODIPine Tab 5 MG TABLET PO SCH (10:10)
[2019-10-25] MEDS: Metoprolol TARTRATE Tab 50 MG TAB PO SCH ×2 (10:10→21:15)
[2019-10-25] MEDS: cefTRIAXone Inj 2 GM in Sodium Chloride 0.9% 100 ML IV SCH (14:10)
[2019-10-25 17:37] LABS: VENOUS PH 7.45 (7.32-7.42)
[2019-10-25] MEDS: traZODone Tab 50 MG TAB PO SCH (21:15)
[2019-10-25] MEDS: OLANZapine Tab 5 MG TAB PO SCH (21:15)
[2019-10-26] MEDS: IBUPROFEN 400 MG TABLET PO PRN ×3 (00:01→19:11)
[2019-10-26] MEDS: HYDROcodone-APAP 7.5 MG-325 MG TABLET PO PRN ×2 (04:26→19:11)
[2019-10-26] MEDS: methylPREDNISolone 125 MG/2 ML VIAL IVP SCH ×3 (05:47→17:22)
[2019-10-26] MEDS: IPRATROPIUM/ALBUTEROL SULFATE 3 ML NEB NEB SCH ×4 (06:54→19:18)
[2019-10-26] MEDS: FLUoxetine 20 MG CAPSULE PO SCH (09:47)
[2019-10-26] MEDS: OSELTAMIVIR PHOSPHATE 75 MG CAPSULE PO SCH ×2 (09:48→20:20)
[2019-10-26] MEDS: CEPHALEXIN 500 MG CAPSULE PO SCH ×3 (09:48→20:20)
[2019-10-26] MEDS: Multivitamin Tab 1 TAB PO SCH (09:48)
[2019-10-26] MEDS: AmLODIPine Tab 5 MG TABLET PO SCH (09:48)
[2019-10-26] MEDS: Metoprolol TARTRATE Tab 50 MG TAB PO SCH ×2 (09:49→20:20)
[2019-10-26] MEDS: ASPIRIN EC 81 MG TABLET PO SCH (09:49)
[2019-10-26] MEDS: FOLIC ACID 1 MG TABLET PO SCH (09:49)
[2019-10-26] MEDS: GABAPENTIN 300 MG CAPSULE PO SCH ×2 (09:49→20:20)
[2019-10-26] MEDS: Thiamine Tab 100 MG TAB PO SCH (09:49)
[2019-10-26] MEDS: PANTOPRAZOLE 40 MG TABLET PO SCH (09:49)
[2019-10-26] MEDS: ACIDOPHILUS/BULGARICUS CHEWABLE TABLET PO SCH ×2 (09:50→20:19)
[2019-10-26] MEDS: ENOXAPARIN SODIUM 40 MG/0.4 ML SYRINGE SUBCUT SCH (09:50)
[2019-10-26] MEDS: cefTRIAXone Inj 2 GM in Sodium Chloride 0.9% 100 ML IV SCH (12:45)
[2019-10-26] MEDS: OLANZapine Tab 5 MG TAB PO SCH (20:19)
[2019-10-26] MEDS: traZODone Tab 50 MG TAB PO SCH (20:20)
[2019-10-27] MEDS: methylPREDNISolone 125 MG/2 ML VIAL IVP SCH ×3 (00:36→12:43)
[2019-10-27] MEDS: HYDROcodone-APAP 7.5 MG-325 MG TABLET PO PRN ×2 (05:13→18:38)
[2019-10-27] MEDS: IBUPROFEN 400 MG TABLET PO PRN ×2 (05:16→18:38)
[2019-10-27 05:40] LABS: BASOPHILS # (AUTO) 0.01 10*3/UL; BASOPHILS % (AUTO) 0.2 % (0-1); EOSINOPHILS # (AUTO) 0 10*3/UL; EOSINOPHILS % (AUTO) 0 % (0-8); Hematocrit [HCT] 42.6 % (42.0-52.0); Hemoglobin [HGB] 14.7 g/dL (14.0-18.0); LYMPHOCYTES # (AUTO) 0.27 10*3/uL; MEAN CORPUSCULAR HGB CONC 34.5 g/dL (33-37); MEAN CORPUSCULAR VOLUME 102.2 FL (80-90); MEAN PLATELET VOLUME 8.9 FL (7.4-12.2); MONOCYTES # (AUTO) 0.21 10*3/UL (0.3-0.8); MONOCYTES % (AUTO) 3.9 % (5-15); NEUTROPHILS # (AUTO) 4.78 10*3/UL; NEUTROPHILS % (AUTO) 89.5 % (50-80); RED BLOOD COUNT 4.17 10^6/uL (4.70-6.10)
[2019-10-27 05:46] LABS: PLATELET MORPHOLOGY COMMENT NORMAL MORPHOLOGY (NORM); RBC MORPHOLOGY COMMENT NORMAL MORPHOLOGY (NORM); WBC MORPHOLOGY COMMENT NORMAL MORPHOLOGY (NORM)
[2019-10-27] MEDS: IPRATROPIUM/ALBUTEROL SULFATE 3 ML NEB NEB SCH ×4 (06:35→19:03)
[2019-10-27] MEDS: PANTOPRAZOLE 40 MG TABLET PO SCH (09:34)
[2019-10-27] MEDS: Thiamine Tab 100 MG TAB PO SCH (09:34)
[2019-10-27] MEDS: Multivitamin Tab 1 TAB PO SCH (09:34)
[2019-10-27] MEDS: FLUoxetine 20 MG CAPSULE PO SCH (09:35)
[2019-10-27] MEDS: CEPHALEXIN 500 MG CAPSULE PO SCH ×3 (09:35→20:32)
[2019-10-27] MEDS: OSELTAMIVIR PHOSPHATE 75 MG CAPSULE PO SCH ×2 (09:35→20:33)
[2019-10-27] MEDS: GABAPENTIN 300 MG CAPSULE PO SCH ×2 (09:35→20:32)
[2019-10-27] MEDS: Metoprolol TARTRATE Tab 50 MG TAB PO SCH ×2 (09:36→20:33)
[2019-10-27] MEDS: ACIDOPHILUS/BULGARICUS CHEWABLE TABLET PO SCH ×2 (09:36→20:33)
[2019-10-27] MEDS: ASPIRIN EC 81 MG TABLET PO SCH (09:36)
[2019-10-27] MEDS: AmLODIPine Tab 5 MG TABLET PO SCH (09:36)
[2019-10-27] MEDS: FOLIC ACID 1 MG TABLET PO SCH (09:36)
[2019-10-27] MEDS: AZITHROMYCIN 250 MG TABLET PO SCH (11:34)
[2019-10-27] MEDS: Loperamide Tab 2 MG TABLET PO PRN ×2 (14:36→20:33)
[2019-10-27] MEDS ORDERED: methylPREDNISolone 125 MG/2 ML VIAL IVP SCH (18:00)
[2019-10-27] MEDS: OLANZapine Tab 5 MG TAB PO SCH (20:32)
[2019-10-27] MEDS: traZODone Tab 50 MG TAB PO SCH (20:33)
[2019-10-28] MEDS: methylPREDNISolone 125 MG/2 ML VIAL IVP SCH (00:07)
[2019-10-28] MEDS: HYDROcodone-APAP 7.5 MG-325 MG TABLET PO PRN (02:42)
[2019-10-28] MEDS: IBUPROFEN 400 MG TABLET PO PRN (02:43)
[2019-10-28 05:07] LABS: BASOPHILS # (AUTO) 0 10*3/UL; BASOPHILS % (AUTO) 0 % (0-1); EOSINOPHILS # (AUTO) 0 10*3/UL; EOSINOPHILS % (AUTO) 0 % (0-8); Hematocrit [HCT] 40.7 % (42.0-52.0); Hemoglobin [HGB] 14.1 g/dL (14.0-18.0); LYMPHOCYTES # (AUTO) 0.22 10*3/uL; MEAN CORPUSCULAR HGB CONC 34.6 g/dL (33-37); MEAN CORPUSCULAR VOLUME 101.8 FL (80-90); MEAN PLATELET VOLUME 8.8 FL (7.4-12.2); MONOCYTES # (AUTO) 0.29 10*3/UL (0.3-0.8); MONOCYTES % (AUTO) 4.3 % (5-15); NEUTROPHILS # (AUTO) 6.16 10*3/UL; NEUTROPHILS % (AUTO) 91.4 % (50-80)
[2019-10-28 05:10] LABS: PLATELET MORPHOLOGY COMMENT NORMAL MORPHOLOGY (NORM); RBC MORPHOLOGY COMMENT NORMAL MORPHOLOGY (NORM); WBC MORPHOLOGY COMMENT NORMAL MORPHOLOGY (NORM)
[2019-10-28 05:39] LABS: BLOOD UREA NITROGEN 19 mg/dL (7-22); BUN/CREATININE RATIO 31.66 (6-20)
[2019-10-28 06:50] VITALS: BP 166/96; TEMP 97.1
[2019-10-28] MEDS: IPRATROPIUM/ALBUTEROL SULFATE 3 ML NEB NEB SCH (07:48)
[2019-10-28] MEDS: ACIDOPHILUS/BULGARICUS CHEWABLE TABLET PO SCH (08:05)
[2019-10-28] MEDS: Thiamine Tab 100 MG TAB PO SCH (08:06)
[2019-10-28] MEDS: GABAPENTIN 300 MG CAPSULE PO SCH (08:06)
[2019-10-28] MEDS: CEPHALEXIN 500 MG CAPSULE PO SCH (08:06)
[2019-10-28] MEDS: Multivitamin Tab 1 TAB PO SCH (08:06)
[2019-10-28] MEDS: AmLODIPine Tab 5 MG TABLET PO SCH (08:06)
[2019-10-28] MEDS: FOLIC ACID 1 MG TABLET PO SCH (08:07)
[2019-10-28] MEDS: FLUoxetine 20 MG CAPSULE PO SCH (08:07)
[2019-10-28] MEDS: Loperamide Tab 2 MG TABLET PO PRN (08:07)
[2019-10-28] MEDS: AZITHROMYCIN 250 MG TABLET PO SCH (08:07)
[2019-10-28] MEDS: ASPIRIN EC 81 MG TABLET PO SCH (08:07)
[2019-10-28] MEDS: PANTOPRAZOLE 40 MG TABLET PO SCH (08:08)
[2019-10-28] MEDS: Metoprolol TARTRATE Tab 50 MG TAB PO SCH (08:08)
[2019-10-28 10:48] VITALS: RESP 16; O2SAT 92
== END 2019-10-28 11:10 | disposition home or self-care (01) | DRG 190 ==
LOC: ER 10:57 → MED/SURG 14:33
PROVIDERS: ADMIT Internal Medicine; ATTEND Internal Medicine